=== PATIENT | female | born 1955 | race Caucasian/White ===

== ENCOUNTER 2016-06-26 15:54 | Inpatient (IN) | payer OTHER ==
[~2016-06-26 15:54] MED LIST: methylPREDNISolone NA SUCC 125 MG/2 ML VIAL IVPB SCH
[2016-06-26 15:58] VITALS: BMI 24.9
[2016-06-26] MEDS ORDERED: ACETAMINOPHEN 500 MG TABLET (FP) PO ONE (16:03)
--- NOTE | 2016-06-26 16:03 | PDOC ---
History of Present Illness - General Chief Complaint: Shortness of Breath Stated Complaint: SOB Time Seen by Provider: 06/26/16 16:01 History Source: Patient Exam Limitations: No Limitations - History of Present Illness Initial Comments: 06/26/16 16:03 CHIEF COMPLAINT: Shortness of breath HISTORY OF PRESENT ILLNESS: This is a 60 year old female with a history of HTN, CAD s/p stents in 2004 and 2005, COPD (no home O2, no prior hospitalizations), and chronic back pain s/p laminectomy who presents to the ED complaining of cough productive of yellow sputum and shortness of breath. Symptoms started on Monday with sore throat, and progressed to cough and SOB yesterday. She denies chest pain. Vital signs on arrival are notable for oral temp 101.2 and pulse 126. PCP is Dr. Mccabe. Patient quit smoking 5 months ago. REVIEW OF SYSTEMS: GENERAL/CONSTITUTIONAL: No fever or chills. No weakness. No weight change. HEAD, EYES, EARS, NOSE AND THROAT: Throat pain. CARDIOVASCULAR: No chest pain or palpitations. RESPIRATORY: Cough productive of yellow sputum, wheezing, shortness of breath. GASTROINTESTINAL: No nausea, vomiting, diarrhea or constipation. GENITOURINARY: No dysuria, frequency, or change in urination. MUSCULOSKELETAL: No joint or muscle swelling or pain. No neck or back pain. SKIN: No rash or easy bruising. NEUROLOGIC: No headache, vertigo, loss of consciousness, or loss of sensation. PSYCHIATRIC: No depression or anxiety. ENDOCRINE: No increased thirst. No abnormal weight change. HEMATOLOGIC/LYMPHATIC: No anemia, easy bleeding, or history of blood clots. ALLERGIC/IMMUNOLOGIC: No hives or skin allergy. No latex allergy. PHYSICAL EXAM: GENERAL: The patient is awake, alert, and fully oriented, in respiratory distress, rigoring. ENT: Pupils equal, round and reactive to light, extraocular movements intact, sclera anicteric, conjunctiva clear. Neck supple. LUNGS: Diffuse inspiratory and expiratory wheezing with poor air movement. Speaking in half sentences. CV: Tachycardic, regular rhythm, S1/S2, no MRG. Cap refill < 2 sec. ABDOMEN: Soft, non-distended, non-tender. EXTREMITIES: Normal range of motion, no edema. NEUROLOGICAL: Normal speech, normal gait. CN II-XII grossly intact. PSYCH: Normal mood, normal affect. SKIN: Warm, dry, normal turgor, no rashes or lesions noted. Past History - Past Medical History Allergies/Adverse Reactions: Allergies Allergy/AdvReac Type Severity Reaction Status Date / Time isosorbide mononitrate AdvReac Severe headache Verified 06/26/16 15:58 [From Imdur] metal Allergy Intermediate Rash Uncoded 06/26/16 15:58 Home Medications: Ambulatory Orders Carvedilol [Coreg] 25 mg PO DAILY 08/09/13 Ezetimibe [Zetia] 10 mg PO DAILY 08/09/13 Rosuvastatin Calcium [Crestor] 40 mg PO HS 08/09/13 Ranolazine [Ranexa -] 1,000 mg PO BID 08/26/13 Albuterol 0.083% Nebulizer Alessandra [Ventolin 0.083%] 1 neb NEB QID 08/13/15 Felodipine [Felodipine ER] 5 mg PO DAILY 08/13/15 Mometasone/Formoterol [Dulera 100 Mcg/5 Mcg Inhaler] 2 inh IH BID 08/13/15 Niacin [Niacin ER] 1,000 mg PO DAILY 08/13/15 Olmesartan/Hydrochlorothiazide [Benicar Hct 40-25 mg Tablet] 1 each PO DAILY 03/20 Aspirin [ASA -] 325 mg PO DAILY 02/09/16 Asthma: Yes Cardiac Disorders: Yes (3 stents) Diabetes: No HTN: Yes Hypercholesterolemia: Yes Liver Disease: No Seizures: No - Surgical History Cardiac Surgery: Yes (3 stents) Neurologic Surgery: Yes (spine screws in back) Orthopedic Surgery: Yes (BACK SURGERY) - Psycho/Social/Smoking Cessation Hx Anxiety: No Suicidal Ideation: No Smoking History: Former smoker Have you smoked in the past 12 months: Yes Number of Cigarettes Smoked Daily: 3 If you are a former smoker, when did you quit?: 6 mos ago Information on smoking cessation initiated: No 'Breaking Loose' booklet given: 04/24/15 Hx Alcohol Use: No Drug/Substance Use Hx: No Substance Use Type: Alcohol Hx Substance Use Treatment: No *Physical Exam - Vital Signs Last Vital Signs Temp Pulse Resp BP Pulse Ox 101.2 F H 126 H 20 185/103 95 06/26/16 15:55 06/26/16 15:55 06/26/16 15:55 06/26/16 15:55 06/26/16 15:55 ED Treatment Course - LABORATORY CBC & Chemistry Diagram: 06/26/16 16:15 06/26/16 16:15 - RADIOLOGY Radiology Studies Ordered: Category Date Time Status CHEST PA & LAT [RAD] Stat Radiology 06/26/16 16:02 Ordered Medical Decision Making - Medical Decision Making 06/26/16 17:03 A/P: 60 year old female with COPD exacerbation in the setting of fever and URI symptoms. 1. Supplemental O2 2. EKG 3. Sepsis labs and soto-culture, including rapid strep and influenza swab 4. CXR 5. DuoNeb followed by albuterol nebs 6. Solu-medrol 125mg IVPB 7. Tylenol 975mg po for fever 8. Re-assess Wheezing not improving following DuoNeb x 2 and Solu-Medrol. Will give Mg 2g IVPB. UA with 2+ leukesterase. Culture sent. Ceftriaxone ordered. WBC is within normal limits at 8.1. K 3.2, repleted CXR wet read: no infiltrate; will add Zithromax however with strong suspicion for PNA *DC/Admit/Observation/Transfer Diagnosis at time of Disposition: COPD exacerbation Fever Qualifiers: Fever type: unspecified Qualified Code(s): R50.9 - Fever, unspecified Urinary tract infection Qualifiers: Hematuria presence: without hematuria - Discharge Dispostion Admit: Yes
[2016-06-26] MEDS ORDERED: ACETAMINOPHEN 325 MG TABLET (FP) ONE ×2 (16:08→20:18)
[2016-06-26] MEDS ORDERED: methylPREDNISolone NA SUCC 125 MG/2 ML VIAL IVPB ONE (16:10)
[2016-06-26] MEDS ORDERED: ALBUTEROL SO4 2.5/IPRATROPIUM 0.5 INH SOL 3 ML VIAL.NEB. NEB ONE ×4 (16:10→20:07)
[2016-06-26] MEDS ORDERED: methylPREDNISolone NA SUCC 125 MG/2 ML VIAL ONE (16:14)
[2016-06-26 16:37] LABS: MCH 29.2 pg (25.7-33.7); MCHC 33.4 g/dl (32.0-36.0); MEAN CELL VOLUME 87.4 fl (80-96); MEAN PLT VOLUME 8.9 fl (7.5-11.1); PLATELET COUNT 212 K/MM3 (134-434); RDW 16.4 % (11.6-15.6); WHITE BLOOD COUNT 8.1 K/mm3 (4.0-10.0)
[2016-06-26] MEDS ORDERED: MAGNESIUM SULF 50% (8.12 MEQ/2 ML-1 GM VIAL) IVPB ONE (16:53)
[2016-06-26] MEDS ORDERED: MAGNESIUM SULF 50% (8.12 MEQ/2 ML-1 GM VIAL) ONE (16:55)
[2016-06-26 16:58] LABS: URINE APPEARANCE CLOUDY; URINE COLOR AMBER; URINE GLUCOSE (UA) NEGATIVE (NEGATIVE); URINE KETONE NEGATIVE (NEGATIVE); URINE NITRITE NEGATIVE (NEGATIVE); URINE UROBILINOGEN NEGATIVE E.U./dl (0.2-1.0)
[2016-06-26 17:00] LABS: URINE BLOOD 2+ (NEGATIVE); URINE LEUK ESTERASE 2+ (NEGATIVE); URINE PROTEIN 2+ (NEGATIVE)
[2016-06-26 17:04] LABS: ALBUMIN 3.8 g/dl (3.4-5.0); BILIRUBIN,TOTAL 0.7 mg/dL (0.2-1.0); CALCIUM 8.5 mg/dL (8.5-10.1); CREATININE 1.1 mg/dL (0.55-1.02); TOT PROT 6.9 g/dl (6.4-8.2)
[2016-06-26] MEDS ORDERED: CEFTRIAXONE 1 GM in DEXTROSE 5%-WATER - 50 ML IVPB ONE (17:05)
[2016-06-26 17:06] LABS: URINE MUCUS MANY; URINE RBC 49 /hpf (0-3); URINE WBC 45 /hpf (3-5)
[2016-06-26 17:10] LABS: PLATELET ESTIMATE ADEQUATE (NORMAL)
[2016-06-26] MEDS ORDERED: CEFTRIAXONE 50 ML ONE (17:11)
[2016-06-26] MEDS ORDERED: POTASSIUM CHLORIDE TABS 20 MEQ TABLET.ER (FP) PO ONE ×2 (17:14→17:22)
[2016-06-26] MEDS: ALBUTEROL SO4 0.083% IH SOL 2.5 MG/3 ML VIAL.NEB. NEB SCH ×2 (17:21→17:31)
[2016-06-26] MEDS: SODIUM CHLORIDE 1,000 ML IV SCH (17:21)
[2016-06-26] MEDS ORDERED: ALBUTEROL SO4 0.083% IH SOL 2.5 MG/3 ML VIAL.NEB. NEB ONE (17:22)
[2016-06-26] MEDS ORDERED: AZITHROMYCIN IVPB 500 MG in DEXTROSE 5%-WATER - 250 ML IVPB ONE (17:23)
[2016-06-26] MEDS ORDERED: AZITHROMYCIN IVPB 250 ML IVPB ONE (17:39)
--- NOTE | 2016-06-26 19:06 | PN ---
<Cathie Quintero - Last Filed: 06/26/16 19:06> Teaching Attending Note Name of Resident: Lulu Vaz ATTENDING PHYSICIAN STATEMENT I saw and evaluated the patient. I reviewed the resident's note and discussed the case with the resident. I agree with the resident's findings and plan as documented. SUBJECTIVE: OBJECTIVE: ASSESSMENT AND PLAN: <Barbara Alonso - Last Filed: 06/26/16 20:16> Teaching Attending Note ATTENDING PHYSICIAN STATEMENT I saw and evaluated the patient. I reviewed the resident's note and discussed the case with the resident. I agree with the resident's findings and plan as documented. SUBJECTIVE: 60 yo F with a PMHx of HTN, CAD post stents in 2004 and 2005, COPD, chronic back pain, former smoker quit five months ago presents with chronic productive cough and SOB for 2 days. Patient reports cough began as dry and is now productive with yellow sputum. She also notes associated headache, fever, chills , diaphoresis, decreased appetite and RUQ abdominal pain most likely secondary to coughing. Patient reports she has not had her flu vaccine this year. Denies dysuria Denies: nausea, vomiting, diarrhea Allergies: Isosorbide mononitrate, metal Social Hx: Former Smoker: 1ppd for 20 years OBJECTIVE: Last Vital Signs Temp Pulse Resp BP Pulse Ox 99.1 F 111 H 20 147/90 95 06/26/16 18:11 06/26/16 18:11 06/26/16 18:11 06/26/16 18:11 06/26/16 18:11 GENERAL: Elderly female resting in bed. Able to speak full sentences. Awake, alert, and fully oriented, in no acute distress HEENT: Atraumatic. PERRLA, EOMI. Moist mucosa. No JVD. Throat w/o exudates. LUNGS: No distress, speaks full sentences, course bilateral expiratory wheezing. HEART: Regular rate and rhythm, normal S1 and S2, no murmurs, rubs or gallops, peripheral pulses normal and equal bilaterally. ABDOMEN: Obese, nontender, bowel sounds x4. No guarding, no rebound. No masses EXTREMITIES: Normal inspection, Normal range of motion, no edema. No clubbing or cyanosis. NEUROLOGICAL: Cranial nerves II through XII grossly intact. Normal speech, normal gait, no focal sensorimotor deficits SKIN: Warm, Dry, normal turgor, no rashes or lesions noted. CBCD WBC 8.1 K/mm3 (4.0-10.0) D 06/26/16 16:15 RBC 4.68 M/mm3 (3.60-5.2) D 06/26/16 16:15 Hgb 13.7 GM/dL (10.7-15.3) D 06/26/16 16:15 Hct 40.9 % (32.4-45.2) D 06/26/16 16:15 MCV 87.4 fl (80-96) 06/26/16 16:15 MCHC 33.4 g/dl (32.0-36.0) 06/26/16 16:15 RDW 16.4 % (11.6-15.6) H 06/26/16 16:15 Plt Count 212 K/MM3 (134-434) 06/26/16 16:15 MPV 8.9 fl (7.5-11.1) 06/26/16 16:15 CMP Sodium 140 mmol/L (136-145) 06/26/16 16:15 Potassium 3.3 mmol/L (3.5-5.1) L 06/26/16 16:15 Chloride 104 mmol/L (98-107) 06/26/16 16:15 Carbon Dioxide 25 mmol/L (21-32) 06/26/16 16:15 Anion Gap 11 (8-16) 06/26/16 16:15 BUN 14 mg/dL (7-18) D 06/26/16 16:15 Creatinine 1.1 mg/dL (0.55-1.02) H D 06/26/16 16:15 Creat Clearance w eGFR 50.33 (>60) 06/26/16 16:15 Calcium 8.5 mg/dL (8.5-10.1) 06/26/16 16:15 Total Bilirubin 0.7 mg/dL (0.2-1.0) D 06/26/16 16:15 AST 27 U/L (15-37) D 06/26/16 16:15 ALT 60 U/L (12-78) D 06/26/16 16:15 Alkaline Phosphatase 125 U/L (45-117) H 06/26/16 16:15 Total Protein 6.9 g/dl (6.4-8.2) 06/26/16 16:15 Albumin 3.8 g/dl (3.4-5.0) 06/26/16 16:15 Chest X-Ray Impression: No acute process ASSESSMENT AND PLAN: 60 YO F HTN, CAD post stents, COPD, chronic back pain who presents with SOB admitted for sepsis and COPD exacerbation. 1.) Sepsis -Possibly due to UTI/ questionable PNA -Continue ceftriaxone/ azithromycin -Urine culture -Blood culture -Repeat lactic acid -IV fluids -Flu swab neg. -Check urine AG 2.) Acute exacerbation of COPD -Cont with duonabs ATC/PRN -Continue with solu medrol 60 Q 8 -Fingersticks and sliding scale -Sputum culture -Continue with Dulera -Continue with ceftriaxone 3.) CAD s/p stents -Continue with aspirin coreg -ARB -Continue Ranexa -Continue with statin 4.) HTN -Continue with home meds 5.) LONI questionable CKD -IVF DVT ppx -Heparin 5,000 Q 8 moderate risk Admit to Med-surg Documentation prepared by Barbara Alonso, acting as medical donation professional for Cathie Quintero M.D.
--- NOTE | 2016-06-26 20:09 | HP ---
CHIEF COMPLAINT: SOB and cough PCP: Dr. Vuong. HISTORY OF PRESENT ILLNESS: 60 year old female presented to the ED with the complaints of shortness of breath and cough x 2 days. A/c to the patient, she started having cold like symptoms 2days ago, had sore throat, stuffy nose, dry cough. Her symptoms progressively got worse, started producing yellowish/whitish sputum, no blood noticed. It was associated with Shortness of breath on exertion, aggravated by walking and standing, relieved by sitting on propped up position. Patient mentions she was able to go to work yesterday. But today the symptoms were so severe, she had to come to the ED. Also reports of feeling feverish (temp not recorded ) with chills, sweating but no rigors. Complaints of headache +, frontal, associated with nausea but no vomiting. Hasn't taken flu vaccine Denies dizziness, loc, chest pain, palpitations or abdominal pain. No urinary symptoms, bowel habits normal. Sleep/Appetite decreased. ER course was notable for: (1) CBC, CMP, UA, Urine Culture, Blood culture (2) CXR (3) Ceftriaxone, Azithromycin, Duoneb, Solumedrol, tylenol Recent Travel: None PAST MEDICAL HISTORY: Hypertension, CAD s/p stent 2004/2005, COPD (No home oxygen, no prior hospitalization), chronic back pain s/p laminectomy PAST SURGICAL HISTORY: s/p sent, s/p laminectomy Social History: Smoking: Smoked 1 pack for 20 years, quit 5 months Alcohol: Occasional alcohol intake Drugs: No illicit drug use Family History: Not known Allergies isosorbide mononitrate [From Imdur] Adverse Reaction (Severe, Verified 06/26/16 15:58) headache metal Allergy (Intermediate, Uncoded 06/26/16 15:58) Rash itching HOME MEDICATIONS: Medication Instructions Recorded Carvedilol [Coreg] 25 mg PO DAILY 08/09/13 Ezetimibe [Zetia] 10 mg PO DAILY 08/09/13 Rosuvastatin Calcium [Crestor] 40 mg PO HS 08/09/13 Ranolazine [Ranexa -] 1,000 mg PO BID 08/26/13 Albuterol 0.083% Nebulizer Alessandra 1 neb NEB QID 08/13/15 [Ventolin 0.083%] Felodipine [Felodipine ER] 5 mg PO DAILY 08/13/15 Mometasone/Formoterol [Dulera 100 2 inh IH BID 08/13/15 Mcg/5 Mcg Inhaler] Niacin [Niacin ER] 1,000 mg PO DAILY 08/13/15 Olmesartan/Hydrochlorothiazide 1 each PO DAILY 08/13/15 [Benicar Hct 40-25 mg Tablet] Aspirin [ASA -] 325 mg PO DAILY 02/09/16 REVIEW OF SYSTEMS CONSTITUTIONAL: Present: Fever, chills Absent: diaphoresis, generalized weakness, malaise, loss of appetite, weight change HEENT: Absent: rhinorrhea, nasal congestion, throat pain, throat swelling, difficulty swallowing, mouth swelling, ear pain, eye pain, visual changes CARDIOVASCULAR: Absent: chest pain, syncope, palpitations, irregular heart rate, lightheadedness , peripheral edema RESPIRATORY: Present: cough, shortness of breath, dyspnea with exertion Absent:orthopnea, wheezing, stridor, hemoptysis GASTROINTESTINAL: Absent: abdominal pain, abdominal distension, nausea, vomiting, diarrhea, constipation, melena, hematochezia GENITOURINARY: Absent: dysuria, frequency, urgency, hesitancy, hematuria, flank pain, genital pain MUSCULOSKELETAL: Absent: myalgia, arthralgia, joint swelling, back pain, neck pain SKIN: Absent: rash, itching, pallor HEMATOLOGIC/IMMUNOLOGIC: Absent: easy bleeding, easy bruising, lymphadenopathy, frequent infections ENDOCRINE: Absent: unexplained weight gain, unexplained weight loss, heat intolerance, cold intolerance NEUROLOGIC: Absent: headache, focal weakness or paresthesias, dizziness, unsteady gait, seizure, mental status changes, bladder or bowel incontinence PSYCHIATRIC: Absent: anxiety, depression, suicidal or homicidal ideation, hallucinations. PHYSICAL EXAMINATION Vital Signs - 24 hr 06/26/16 06/26/16 15:55 18:11 Temperature 101.2 F H 99.1 F Pulse Rate 126 H Pulse Rate [ 111 H Left Radial] Respiratory 20 20 Rate Blood Pressure 185/103 Blood Pressure 147/90 [Left Arm] O2 Sat by Pulse 95 95 Oximetry (%) GENERAL: Patient is lying in propped up position, Awake, alert, and fully oriented, SOB with wheezing +. HEAD: Normal with no signs of trauma. EYES: EOM intact, no pallor or icterus. EARS, NOSE, THROAT: Ears normal. Moist mucous membranes. NECK: Supple. LUNGS: B/L Breath sounds equal, wheezing +, coarse breath sounds occasional, no crackles. HEART: Tachycardic, Regular rate and rhythm, normal S1 and S2 without murmur. ABDOMEN: Soft, nontender, not distended, normoactive bowel sounds, no guarding, no rebound, no masses. No hepatomegaly or splenomegaly. MUSCULOSKELETAL: Normal range of motion at all joints. No bony deformities or tenderness. No CVA tenderness. UPPER EXTREMITIES: 2+ pulses, warm, well-perfused. No cyanosis. No clubbing. Cap refill <2 seconds. No peripheral edema. LOWER EXTREMITIES: 2+ pulses, warm, well-perfused. No calf tenderness. No peripheral edema. NEUROLOGICAL: Cranial nerves II-XII intact. Normal speech. Gait not observed. PSYCHIATRIC: Cooperative. Good eye contact. Appropriate mood and affect. SKIN: Warm, dry, normal turgor, no rashes or lesions noted. Laboratory Results - last 24 hr 06/26/16 06/26/16 06/26/16 16:15 16:15 16:15 WBC 8.1 D RBC 4.68 D Hgb 13.7 D Hct 40.9 D MCV 87.4 MCHC 33.4 RDW 16.4 H Plt Count 212 MPV 8.9 Neutrophils % 80.0 D Lymphocytes % 13.0 D Monocytes % 5.0 Band Neutrophils 2.0 Differential Comment Manual diff done Platelet Estimate Adequate Morphology Comment Slide scanned Sodium 140 Potassium 3.3 L Chloride 104 Carbon Dioxide 25 Anion Gap 11 BUN 14 D Creatinine 1.1 H D Creat Clearance w eGFR 50.33 Random Glucose 91 Lactic Acid 1.687 Calcium 8.5 Total Bilirubin 0.7 D AST 27 D ALT 60 D Alkaline Phosphatase 125 H Total Protein 6.9 Albumin 3.8 Urine Color Urine Appearance Urine pH Ur Specific [place] Urine Protein Urine Glucose (UA) Urine Ketones Urine Blood Urine Nitrite Urine Bilirubin Urine Urobilinogen Ur Leukocyte Esterase Urine RBC Urine WBC Ur Epithelial Cells Urine Mucus 06/26/16 16:45 WBC RBC Hgb Hct MCV MCHC RDW Plt Count MPV Neutrophils % Lymphocytes % Monocytes % Band Neutrophils Differential Comment Platelet Estimate Morphology Comment Sodium Potassium Chloride Carbon Dioxide Anion Gap BUN Creatinine Creat Clearance w eGFR Random Glucose Lactic Acid Calcium Total Bilirubin AST ALT Alkaline Phosphatase Total Protein Albumin Urine Color Kathy Urine Appearance Cloudy Urine pH 5.0 Ur Specific [place] 1.029 Urine Protein 2+ H Urine Glucose (UA) Negative Urine Ketones Negative Urine Blood 2+ H Urine Nitrite Negative Urine Bilirubin 4.0 Urine Urobilinogen Negative Ur Leukocyte Esterase 2+ H Urine RBC 49 Urine WBC 45 Ur Epithelial Cells Many Urine Mucus Many ASSESSMENT/PLAN: 60 year old female with significant past medical hx of Hypertension, CAD s/p stent , COPD (No home oxygen, no prior hospitalization), chronic back pain s/p laminectomy presented to the ED with the complaints of shortness of breath and cough x 2 days. # Acute exacerbation of COPD Patient presented with SOB, cough, productive sputum, fever No crackles on auscultation, no leukocytosis, no infiltrates on CXR hence bacterial pneumonia less likely Most likely viral exacerbating COPD In the ED, patient received Ceftriaxone, Azithromycin, Duoneb, Solumedrol, tylenol Ceftriaxone/ Azithromycin will cover questionable pneumonia Monitor vitals Duoneb Q6H Saturation to be maintained between 88-92% Nasal Oxygen PRN Blood culture pending Urine for Legionella Ag pending Influenza negative On Insulin sliding scale, finger stick glucose-since patient is on solumedrol , steroids might raise blood sugar. # Sepsis secondary to most likely Urinary tract infection UA Leukocyte esterase ++, RBC 49, WBC 45 Continue Ceftriaxone IV NS @ 100mls Plenty of oral fluids Urine culture pending. # Progressing towards LONI. Creatinine 1.1, baseline creatinine 0.8 in 2010 IV fluids continued Avoid nephrotoxic drugs # Hypokalemia K-3.3, repleted in the ED CMP, Magnesium to be repeated tomorrow. # CAD s/p stents, Hypertension, Hyperlipidemia Continue home meds: Aspirin, Olmesartan/HCTZ, Carvedilol 25mg Daily, Rosuvastatin 40mg HS, Felodipine, Ranolazine, Ezetimibe # FEN IV NS @ 100mls/hr Electrolytes to be repeated tomorrow. Sodium controlled diet # Prophylaxis For DVT- Heparin sq For GI- Not indicated # Dispo: Admitted in Med-surg, do not know the duration of stay at this time Illness, Investigation and plan of care explained to the patient. She verbalized understanding. Case seen and discussed with Dr. Quintero. Visit type - Emergency Visit Emergency Visit: Yes ED Registration Date: 06/26/16 Care time: The patient presented to the Emergency Department on the above date and was hospitalized for further evaluation of their emergent condition. - New Patient This patient is new to me today: Yes Date on this admission: 06/27/16 - Critical Care Critical Care patient: No
[2016-06-26] MEDS: ALBUTEROL SO4 2.5/IPRATROPIUM 0.5 INH SOL 3 ML VIAL.NEB. NEB SCH (20:10)
[2016-06-26] MEDS ORDERED: ACETAMINOPHEN 325 MG TABLET (FP) PO ONE (20:14)
[2016-06-26] MEDS ORDERED: ALBUTEROL SO4 2.5/IPRATROPIUM 0.5 INH SOL 3 ML VIAL.NEB. NEB PRN (21:33)
[2016-06-27] MEDS ORDERED: HEPARIN NA (PORCINE) 5,000 UNITS/ML 1ML VIAL ONE (02:07)
[2016-06-27] MEDS ORDERED: INSULIN (NOVOLOG) ASPART 100 UNITS/ML 10ML VIAL ONE (02:08)
[2016-06-27] MEDS: ALBUTEROL SO4 2.5/IPRATROPIUM 0.5 INH SOL 3 ML VIAL.NEB. NEB SCH ×3 (02:20→15:15)
[2016-06-27] MEDS: HEPARIN NA (PORCINE) 5,000 UNITS/ML 1ML VIAL SQ SCH ×3 (02:20→23:00)
[2016-06-27] MEDS: ROSUVASTATIN CA 20 MG TABLET (FP) PO SCH ×2 (02:20→22:59)
[2016-06-27] MEDS: RANOLAZINE E.R. 1,000 MG TABLET (FP) PO SCH ×3 (02:21→23:00)
[2016-06-27] MEDS: INSULIN SLIDING SCALE (NOVOLOG) 1 VIAL SQ SCH ×5 (02:21→23:35)
[2016-06-27 07:18] LABS: BASOPHIL 0.3 % (0-2.0); MCH 29.8 pg (25.7-33.7); MCHC 34.1 g/dl (32.0-36.0); MEAN CELL VOLUME 87.4 fl (80-96); NEUTROPHILS 85.9 % (42.8-82.8); PLATELET COUNT 223 K/MM3 (134-434); RDW 16.1 % (11.6-15.6); WHITE BLOOD COUNT 6.8 K/mm3 (4.0-10.0)
[2016-06-27 08:15] LABS: ALBUMIN 3.3 g/dl (3.4-5.0); ALK PHOS 101 U/L (45-117); ANION GAP 10 (8-16); BILIRUBIN,TOTAL 0.3 mg/dL (0.2-1.0); CO2 24 mmol/L (21-32); CREATININE 0.9 mg/dL (0.55-1.02); GLUCOSE,RANDOM 135 mg/dL (74-106); MAGNESIUM 2.7 mg/dL (1.8-2.4); PHOSPHOROUS 3.4 mg/dL (2.5-4.9); SGOT/AST 17 U/L (15-37); SGPT/ALT 44 U/L (12-78); TOT PROT 6.1 g/dl (6.4-8.2)
[2016-06-27] MEDS: SODIUM CHLORIDE 1,000 ML IV SCH ×2 (08:39→17:49)
[2016-06-27] MEDS ORDERED: NIACIN 1000 MG PO SCH (10:00)
[2016-06-27] MEDS ORDERED: PATIENT'S OWN MEDICATION (NON-FORMULARY) (Olmesartan/Hydrochlorothiazide [Benicar Hct 40-2 PO SCH (10:00)
[2016-06-27] MEDS ORDERED: methylPREDNISolone NA SUCC 125 MG/2 ML VIAL IVPB SCH (10:00)
[2016-06-27] MEDS ORDERED: CEFTRIAXONE 50 ML ONE (10:16)
[2016-06-27] MEDS: ASPIRIN 325 MG TABLET PO SCH (10:31)
[2016-06-27] MEDS: CARVEDILOL 25 MG TABLET (FP) PO SCH (10:31)
[2016-06-27] MEDS: CEFTRIAXONE 50 ML IVPB SCH (10:32)
[2016-06-27] MEDS: EZETIMIBE 10 MG TABLET (FP) PO SCH (10:32)
[2016-06-27] MEDS: HYDROCHLOROTHIAZIDE 25 MG TABLET (FP) PO SCH (10:32)
[2016-06-27] MEDS: amLODIPine BESYLATE 5 MG TABLET (FP) PO SCH (10:32)
[2016-06-27] MEDS: VALSARTAN 160 MG TABLET (UD) PO SCH (10:34)
[2016-06-27] MEDS: methylPREDNISolone NA SUCC 125 MG/2 ML VIAL IVPB SCH ×2 (11:00→17:49)
--- NOTE | 2016-06-27 11:06 | EKG ---
Test Reason : Blood Pressure : / mmHG Vent. Rate : 114 BPM Atrial Rate : 114 BPM P-R Int : 114 ms QRS Dur : 074 ms QT Int : 342 ms P-R-T Axes : 050 057 043 degrees QTc Int : 471 ms SINUS TACHYCARDIA POSSIBLE LEFT ATRIAL ENLARGEMENT NONSPECIFIC ST ABNORMALITY ABNORMAL ECG WHEN COMPARED WITH ECG OF 09-FEB-2016 15:38, NO SIGNIFICANT CHANGE WAS FOUND Confirmed by JNAICE HAYES MD ([id number]) on 06/27/2016 11:06:19 AM Referred By: Confirmed By:JANICE HAYES MD
[2016-06-27] MEDS ORDERED: IBUPROFEN 800 MG/8 ML IJ IVPB PRN (13:33)
[2016-06-27] MEDS ORDERED: ALBUTEROL SO4 2.5/IPRATROPIUM 0.5 INH SOL 3 ML VIAL.NEB. NEB PRN (13:34)
[2016-06-27] MEDS ORDERED: methylPREDNISolone NA SUCC 125 MG/2 ML VIAL ONE (14:58)
[2016-06-27] MEDS ORDERED: IBUPROFEN 800 MG/8 ML IJ IVPB ONE (15:08)
[2016-06-27] MEDS ORDERED: ALBUTEROL SO4 2.5/IPRATROPIUM 0.5 INH SOL 3 ML VIAL.NEB. NEB ONE (15:09)
--- NOTE | 2016-06-27 15:19 | PN ---
Progress Note (short form) - Note Progress Note: ID consult dictated fever/cough bronchospasm possible pneumonia possible viral syndrome continue rocephin/zith steroids nebs influenza negative would screen for rsv as well history of cad check BNP and troponins as well possible chf
[2016-06-27] MEDS ORDERED: methylPREDNISolone NA SUCC 40 MG/1 ML VIAL IVPB ONE (15:20)
--- NOTE | 2016-06-27 15:24 | CONSULT ---
Consult Consult Specialty:: PULM/CCM Referred by:: CINDY Reason for Consultation:: SOB - History of Present Illness Chief Complaint: SOB and fever History of Present Illness: 60 F, with listed medical history. Former smoker for the past 6 months. History of COPD maintained on Dulera and Albuterol. Admitted for 2 days of congested cough and SOB. Subjective fever. No travel history or sick contacts. No night sweats or hemoptysis. CXR: no gross infiltrate. - History Source History Provided By: Patient Limitations to Obtaining History: No Limitations - Past Medical History Cardio/Vascular: Yes: CAD, HTN, Hyperlipdemia Pulmonary: Yes: Asthma - Past Surgical History Past Surgical History: Yes: Stent - Alcohol/Substance Use Hx Alcohol Use: No - Smoking History Smoking history: Former smoker Have you smoked in the past 12 months: Yes Aproximately how many cigarettes per day: 3 If you are a former smoker, when did you quit?: 6 mos ago Home Medications - Allergies Allergies/Adverse Reactions: Allergies Allergy/AdvReac Type Severity Reaction Status Date / Time isosorbide mononitrate AdvReac Severe headache Verified 06/26/16 15:58 [From Imdur] metal Allergy Intermediate Rash Uncoded 06/26/16 15:58 - Home Medications Home Medications: Ambulatory Orders Carvedilol [Coreg] 25 mg PO DAILY 08/09/13 Ezetimibe [Zetia] 10 mg PO DAILY 08/09/13 Rosuvastatin Calcium [Crestor] 40 mg PO HS 08/09/13 Ranolazine [Ranexa -] 1,000 mg PO BID 08/26/13 Albuterol 0.083% Nebulizer Alessandra [Ventolin 0.083%] 1 neb NEB QID 08/13/15 Felodipine [Felodipine ER] 10 mg PO DAILY 08/13/15 Mometasone/Formoterol [Dulera 100 Mcg/5 Mcg Inhaler] 2 inh IH BID 08/13/15 Niacin [Niacin ER] 1,000 mg PO DAILY 08/13/15 Olmesartan/Hydrochlorothiazide [Benicar Hct 40-25 mg Tablet] 1 each PO DAILY 03/20 Aspirin [ASA -] 325 mg PO DAILY 02/09/16 Albuterol Sulfate Inhaler - [Ventolin Hfa Inhaler -] 1 - 2 inh PO Q4H PRN Mometasone/Formoterol [Dulera 200 Mcg/5 Mcg Inhaler] 2 inh IH BID 06/27/16 Review of Systems - Review of Systems Constitutional: reports: Fever, Malaise. denies: Chills, Night Sweats, Weakness Eyes: reports: No Symptoms HENT: reports: No Symptoms Neck: reports: No Symptoms Cardiovascular: reports: Shortness of Breath. denies: Chest Pain, Edema, Palpitations Respiratory: reports: Cough, SOB, SOB on Exertion, Wheezing. denies: Hemoptysis Gastrointestinal: reports: No Symptoms Genitourinary: reports: No Symptoms Breasts: reports: No Symptoms Reported Musculoskeletal: reports: No Symptoms Integumentary: reports: No Symptoms Neurological: reports: No Symptoms Endocrine: reports: No Symptoms Hematology/Lymphatic: reports: No Symptoms Psychiatric: reports: No Symptoms Physical Exam Vital Signs: Vital Signs Temperature 98 F 06/27/16 08:41 Pulse Rate 73 06/27/16 12:17 Respiratory Rate 18 06/27/16 12:17 Blood Pressure 126/74 06/27/16 12:17 O2 Sat by Pulse Oximetry (%) 95 06/27/16 12:17 Constitutional: Yes: Well Nourished, No Distress. No: Pallor Eyes: Yes: Conjunctiva Clear, EOM Intact HENT: Yes: Atraumatic, Normocephalic Neck: Yes: Supple, Trachea Midline Cardiovascular: Yes: Regular Rate and Rhythm Respiratory: Yes: Cough, On Nasal O2, Rhonchi, SOB, Tachypnea, Wheezes. No: Accessory Muscle Use, Stridor Gastrointestinal: Yes: Normal Bowel Sounds, Soft, Abdomen, Obese Renal/: Yes: WNL Musculoskeletal: Yes: WNL Extremities: Yes: WNL Edema: No Peripheral Pulses WNL: Yes Integumentary: Yes: WNL Wound/Incision: Yes: Clean/Dry, Well Approximated Neurological: Yes: Alert, Oriented ...Motor Strength: WNL Psychiatric: Yes: WNL, Alert, Oriented Labs: CBC, BMP 06/27/16 06:30 06/27/16 06:30 Imaging - Results Chest X-ray: Report Reviewed, Image Reviewed Problem List - Problems (1) COPD exacerbation Code(s): J44.1 - CHRONIC OBSTRUCTIVE PULMONARY DISEASE W (ACUTE) EXACERBATION (2) Fever Code(s): R50.9 - FEVER, UNSPECIFIED Qualifiers: Fever type: unspecified Qualified Code(s): R50.9 - Fever, unspecified (3) Shortness of breath Code(s): R06.02 - SHORTNESS OF BREATH (4) COPD (chronic obstructive pulmonary disease) Code(s): J44.9 - CHRONIC OBSTRUCTIVE PULMONARY DISEASE, UNSPECIFIED Qualifiers : Emphysema type: unspecified (5) Hyperlipidemia Code(s): E78.5 - HYPERLIPIDEMIA, UNSPECIFIED Qualifiers: Hyperlipidemia type: mixed hyperlipidemia Qualified Code(s): E78.2 - Mixed hyperlipidemia (6) Hypertension Code(s): I10 - ESSENTIAL (PRIMARY) HYPERTENSION Qualifiers: Hypertension type: essential hypertension Qualified Code(s): I10 - Essential (primary) hypertension (7) S/P drug eluting coronary stent placement Code(s): Z95.5 - PRESENCE OF CORONARY ANGIOPLASTY IMPLANT AND GRAFT Assessment/Plan PLAN: Medrol O2 as needed BD TX ABX Per ID Agree with checking cardiac markers Check sputum Continued smoking cessation PFTs after she is stable as an outpatient Will follow Thank you. Dr Frances
--- NOTE | 2016-06-27 16:13 | PN ---
Teaching Attending Note Name of Resident: Domonique Alexander ATTENDING PHYSICIAN STATEMENT I saw and evaluated the patient. I reviewed the resident's note and discussed the case with the resident. I agree with the resident's findings and plan as documented. SUBJECTIVE: Patient is c/o having headache, no shortness of breath, no nausea or vomiting, no abdominal pain. OBJECTIVE: Vital Signs Temperature 98 F 06/27/16 08:41 Pulse Rate 86 06/27/16 15:43 Respiratory Rate 20 06/27/16 15:43 Blood Pressure 137/79 06/27/16 15:43 O2 Sat by Pulse Oximetry (%) 96 06/27/16 15:43 GENERAL: The patient is awake, alert, and fully oriented, in no distress. HEAD: Normal with no signs of trauma. EYES: PERRL, extraocular movements intact, sclera anicteric, conjunctiva clear. No ptosis. ENT: Ears normal, oropharynx clear without exudates, moist mucous membranes. NECK: Trachea midline, full range of motion, supple. LUNGS: Breath sounds equal, wheezing and rales bilaterally, no crackles, no accessory muscle use. HEART: Regular rate and rhythm, S1, S2 without murmur, rub or gallop. ABDOMEN: Soft, nontender, nondistended, normoactive bowel sounds, no guarding, no rebound, no hepatosplenomegaly, no masses. EXTREMITIES: 2+ pulses, warm, well-perfused, no edema. NEUROLOGICAL: Cranial nerves II through XII grossly intact. Normal speech, PSYCH: Normal mood, normal affect. SKIN: Warm, dry, normal turgor, no rashes or lesions noted CBCD WBC 6.8 K/mm3 (4.0-10.0) 06/27/16 06:30 RBC 4.21 M/mm3 (3.60-5.2) 06/27/16 06:30 Hgb 12.5 GM/dL (10.7-15.3) 06/27/16 06:30 Hct 36.8 % (32.4-45.2) 06/27/16 06:30 MCV 87.4 fl (80-96) 06/27/16 06:30 MCHC 34.1 g/dl (32.0-36.0) 06/27/16 06:30 RDW 16.1 % (11.6-15.6) H 06/27/16 06:30 Plt Count 223 K/MM3 (134-434) 06/27/16 06:30 MPV 9.0 fl (7.5-11.1) 06/27/16 06:30 CMP Sodium 142 mmol/L (136-145) 06/27/16 06:30 Potassium 4.1 mmol/L (3.5-5.1) D 06/27/16 06:30 Chloride 108 mmol/L (98-107) H 06/27/16 06:30 Carbon Dioxide 24 mmol/L (21-32) 06/27/16 06:30 Anion Gap 10 (8-16) 06/27/16 06:30 BUN 21 mg/dL (7-18) H D 06/27/16 06:30 Creatinine 0.9 mg/dL (0.55-1.02) 06/27/16 06:30 Creat Clearance w eGFR > 60 (>60) 06/27/16 06:30 Random Glucose 135 mg/dL (74-106) H D 06/27/16 06:30 Calcium 9.0 mg/dL (8.5-10.1) 06/27/16 06:30 Total Bilirubin 0.3 mg/dL (0.2-1.0) D 06/27/16 06:30 AST 17 U/L (15-37) D 06/27/16 06:30 ALT 44 U/L (12-78) D 06/27/16 06:30 Alkaline Phosphatase 101 U/L (45-117) 06/27/16 06:30 Total Protein 6.1 g/dl (6.4-8.2) L 06/27/16 06:30 Albumin 3.3 g/dl (3.4-5.0) L 06/27/16 06:30 Current Medications Generic Name Dose Route Start Last Admin Trade Name Freq PRN Reason Stop Dose Admin Albuterol Sulfate 1 amp 06/27/16 15:30 Ventolin 0.083% Nebulizer Soln - NEB TIDR FABIO Albuterol/Ipratropium 1 amp 06/27/16 13:34 Duoneb - NEB Q4H PRN SHORTNESS OF BREATH Amlodipine Besylate 5 mg 06/27/16 10:00 06/27/16 10:32 Norvasc - PO 5 mg DAILY FABIO Administration Aspirin 325 mg 06/27/16 10:00 06/27/16 10:31 Asa - PO 325 mg DAILY FABIO Administration Carvedilol 25 mg 06/27/16 10:00 06/27/16 10:31 Coreg - PO 25 mg DAILY FABIO Administration Ezetimibe 10 mg 06/27/16 10:00 06/27/16 10:32 Zetia - PO 10 mg DAILY FABIO Administration Heparin Sodium (Porcine) 5,000 unit 06/26/16 22:00 06/27/16 10:31 Heparin - SQ 5,000 unit BID FABIO Administration Hydrochlorothiazide 25 mg 06/27/16 10:00 06/27/16 10:32 Hctz - PO 25 mg DAILY FABIO Administration Sodium Chloride 1,000 mls @ 100 mls/hr 06/26/16 17:15 06/27/16 08:39 Normal Saline - IV 100 mls/hr ASDIR FABOI Administration Azithromycin 250 mls @ 250 mls/hr 06/27/16 20:03 Zithromax 500mg Ivpb (Pre-Docked) IVPB DAILY FABIO Ceftriaxone Sodium 50 mls @ 100 mls/hr 06/27/16 10:00 06/27/16 10:32 Rocephin 1gm Ivpb (Pre-Docked) IVPB 100 mls/hr DAILY FABIO Administration Ibuprofen 400 mg 06/27/16 13:33 06/27/16 15:15 Caldolor Injection - IVPB 06/28/16 08:00 400 mg Q6H PRN Administration FEVER Influenza Virus Vaccine 45 mcg 06/27/16 12:21 Fluvirin IM 06/27/16 12:22 .ONCE ONE Insulin Aspart 1 vial 06/26/16 22:00 06/27/16 11:22 Novolog Vial Sliding Scale - SQ Not Given ACHS [facility] Protocol Methylprednisolone Sodium Succinate 60 mg 06/27/16 10:00 06/27/16 11:00 Solu-Medrol - IVPB 60 mg Q8H-IV FABIO Administration Non-Formulary Medication 2 inh 06/27/16 22:00 Mometasone/Formoterol [Dulera 100 Mcg/5 Mcg Inhaler] IH BID FABIO Non-Formulary Medication 1,000 mg 06/27/16 10:00 Niacin [Niacin Er] PO DAILY FABIO Ranolazine 1,000 mg 06/26/16 22:00 06/27/16 10:31 Ranexa - PO 1,000 mg BID FABIO Administration Rosuvastatin Calcium 40 mg 06/26/16 22:00 06/27/16 02:20 Crestor - PO 40 mg HS FABIO Administration Valsartan 320 mg 06/27/16 10:00 06/27/16 10:34 Diovan - PO 320 mg DAILY FABIO Administration Current Medications Generic Name Dose Route Start Last Admin Trade Name Freq PRN Reason Stop Dose Admin Albuterol Sulfate 1 amp 06/27/16 15:30 Ventolin 0.083% Nebulizer Soln - NEB TIDR FABIO Albuterol/Ipratropium 1 amp 06/27/16 13:34 Duoneb - NEB Q4H PRN SHORTNESS OF BREATH Amlodipine Besylate 5 mg 06/27/16 10:00 06/27/16 10:32 Norvasc - PO 5 mg DAILY FABIO Administration Aspirin 325 mg 06/27/16 10:00 06/27/16 10:31 Asa - PO 325 mg DAILY FABIO Administration Carvedilol 25 mg 06/27/16 10:00 06/27/16 10:31 Coreg - PO 25 mg DAILY FABIO Administration Ezetimibe 10 mg 06/27/16 10:00 06/27/16 10:32 Zetia - PO 10 mg DAILY FABIO Administration Heparin Sodium (Porcine) 5,000 unit 06/26/16 22:00 06/27/16 10:31 Heparin - SQ 5,000 unit BID FABIO Administration Hydrochlorothiazide 25 mg 06/27/16 10:00 06/27/16 10:32 Hctz - PO 25 mg DAILY FABIO Administration Sodium Chloride 1,000 mls @ 100 mls/hr 06/26/16 17:15 06/27/16 08:39 Normal Saline - IV 100 mls/hr ASDIR FABIO Administration Azithromycin 250 mls @ 250 mls/hr 06/27/16 20:03 Zithromax 500mg Ivpb (Pre-Docked) IVPB DAILY FABIO Ceftriaxone Sodium 50 mls @ 100 mls/hr 06/27/16 10:00 06/27/16 10:32 Rocephin 1gm Ivpb (Pre-Docked) IVPB 100 mls/hr DAILY FABIO Administration Ibuprofen 400 mg 06/27/16 13:33 06/27/16 15:15 Caldolor Injection - IVPB 06/28/16 08:00 400 mg Q6H PRN Administration FEVER Influenza Virus Vaccine 45 mcg 06/27/16 12:21 Fluvirin IM 06/27/16 12:22 .ONCE ONE Insulin Aspart 1 vial 06/26/16 22:00 06/27/16 11:22 Novolog Vial Sliding Scale - SQ Not Given ACHS FABIO Protocol Methylprednisolone Sodium Succinate 60 mg 06/27/16 10:00 06/27/16 11:00 Solu-Medrol - IVPB 60 mg Q8H-IV FABIO Administration Non-Formulary Medication 2 inh 06/27/16 22:00 Mometasone/Formoterol [Dulera 100 Mcg/5 Mcg Inhaler] IH BID FABIO Non-Formulary Medication 1,000 mg 06/27/16 10:00 Niacin [Niacin Er] PO DAILY FABIO Ranolazine 1,000 mg 06/26/16 22:00 06/27/16 10:31 Ranexa - PO 1,000 mg BID FABIO Administration Rosuvastatin Calcium 40 mg 06/26/16 22:00 06/27/16 02:20 Crestor - PO 40 mg HS FABIO Administration Valsartan 320 mg 06/27/16 10:00 06/27/16 10:34 Diovan - PO 320 mg DAILY FABIO Administration ASSESSMENT AND PLAN: 60 year old female with significant past medical hx of Hypertension, CAD s/p stent , COPD (No home oxygen, no prior hospitalization), chronic back pain s/p laminectomy presented to the ED with the complaints of shortness of breath and cough x 2 days. She is admitted for COPD exacerbation. #Acute exacerbation of COPD # Sepsis secondary to most likely Urinary tract infection #LONI. improving, avoid nephrotoxic drugs # Hypokalemia and Hypomagnesemia; repleted #CAD s/p stents, Hypertension, Hyperlipidemia #Headache;ordered Ibuprofen 400 mg IV Prophylaxis DVT- Heparin sq
--- NOTE | 2016-06-27 17:24 | PN ---
Physical Exam: SUBJECTIVE: Patient seen and examined. She is complaining of a headache, SOB, cough and wheezing. She denies chest pain, abdominal pain, palpitations, N/V, diarrhea. OBJECTIVE: Vital Signs Period Temp Pulse Resp BP Sys/Gonzalez Pulse Ox Last 24 Hr 98 F-99.1 F 73-111 16-20 126-153/74-92 94-98 GENERAL: The patient is awake, alert, and fully oriented, in no acute distress. HEAD: Normal with no signs of trauma. EYES: PERRL, extraocular movements intact, sclera anicteric, conjunctiva clear. No ptosis. ENT: Ears normal, nares patent, oropharynx clear without exudates, moist mucous membranes. NECK: Trachea midline, full range of motion, supple. LUNGS: Breath sounds equal, diminished B/L, rales and wheezing bilaterally, no wheezes, no crackles, no accessory muscle use. HEART: Regular rate and rhythm, S1, S2 without murmur, rub or gallop. ABDOMEN: Obese, soft, nontender, nondistended, normoactive bowel sounds, no guarding, no rebound, no hepatosplenomegaly, no masses. EXTREMITIES: 2+ pulses, warm, well-perfused, no edema. NEUROLOGICAL: Cranial nerves II through XII grossly intact. Normal speech, gait not observed. PSYCH: Normal mood, normal affect. SKIN: Warm, dry, normal turgor, no rashes or lesions noted Laboratory Results - last 24 hr 06/27/16 06/27/16 06/27/16 00:33 06:30 06:30 WBC 6.8 RBC 4.21 Hgb 12.5 Hct 36.8 MCV 87.4 MCHC 34.1 RDW 16.1 H Plt Count 223 MPV 9.0 Neutrophils % 85.9 H Lymphocytes % 9.9 D Monocytes % 3.9 Eosinophils % 0.0 D Basophils % 0.3 Sodium 142 Potassium 4.1 D Chloride 108 H Carbon Dioxide 24 Anion Gap 10 BUN 21 H D Creatinine 0.9 Creat Clearance w eGFR > 60 POC Glucometer [phone] Random Glucose 135 H D Calcium 9.0 Phosphorus 3.4 Magnesium 2.7 H D Total Bilirubin 0.3 D AST 17 D ALT 44 D Alkaline Phosphatase 101 Total Protein 6.1 L Albumin 3.3 L 06/27/16 06/27/16 06/27/16 06:39 11:15 16:53 WBC RBC Hgb Hct MCV MCHC RDW Plt Count MPV Neutrophils % Lymphocytes % Monocytes % Eosinophils % Basophils % Sodium Potassium Chloride Carbon Dioxide Anion Gap BUN Creatinine Creat Clearance w eGFR POC Glucometer 134.41486 105.82405 160 Random Glucose Calcium Phosphorus Magnesium Total Bilirubin AST ALT Alkaline Phosphatase Total Protein Albumin Active Medications Generic Name Dose Route Start Last Admin Trade Name Freq PRN Reason Stop Dose Admin Albuterol Sulfate 1 amp 06/27/16 15:30 Ventolin 0.083% Nebulizer Soln - NEB TIDR STANISLAW Albuterol/Ipratropium 1 amp 06/27/16 13:34 Duoneb - NEB Q4H PRN SHORTNESS OF BREATH Amlodipine Besylate 5 mg 06/27/16 10:00 06/27/16 10:32 Norvasc - PO 5 mg DAILY STANISLAW Administration Aspirin 325 mg 06/27/16 10:00 06/27/16 10:31 Asa - PO 325 mg DAILY ST[facility]ISLAW Administration Carvedilol 25 mg 06/27/16 10:00 06/27/16 10:31 Coreg - PO 25 mg DAILY ST[facility]LAW Administration Ezetimibe 10 mg 06/27/16 10:00 06/27/16 10:32 Zetia - PO 10 mg DAILY ST[facility]LA[facility] Administration Heparin Sodium (Porcine) 5,000 unit 06/26/16 22:00 06/27/16 10:31 Heparin - SQ 5,000 unit BID STANISLAW Administration Hydrochlorothiazide 25 mg 06/27/16 10:00 06/27/16 10:32 Hctz - PO 25 mg DAILY STANISLAW Administration Sodium Chloride 1,000 mls @ 100 mls/hr 06/26/16 17:15 06/27/16 08:39 Normal Saline - IV 100 mls/hr ASDIR STANISLAW Administration Azithromycin 250 mls @ 250 mls/hr 06/27/16 20:03 Zithromax 500mg Ivpb (Pre-Docked) IVPB DAILY STANISLAW Ceftriaxone Sodium 50 mls @ 100 mls/hr 06/27/16 10:00 06/27/16 10:32 Rocephin 1gm Ivpb (Pre-Docked) IVPB 100 mls/hr DAILY [facility]ISLAW Administration Ibuprofen 400 mg 06/27/16 13:33 06/27/16 15:15 Caldolor Injection - IVPB 06/28/16 08:00 400 mg Q6H PRN Administration FEVER Influenza Virus Vaccine 45 mcg 06/27/16 12:21 Fluvirin IM 06/27/16 12:22 .ONCE ONE Insulin Aspart 1 vial 06/26/16 22:00 06/27/16 16:53 Novolog Vial Sliding Scale - SQ 2 unit ACHS STANISLAW Administration Protocol Methylprednisolone Sodium Succinate 60 mg 06/27/16 10:00 06/27/16 11:00 Solu-Medrol - IVPB 60 mg Q8H-IV STANISLAW Administration Non-Formulary Medication 2 inh 06/27/16 22:00 Mometasone/Formoterol [Dulera 100 Mcg/5 Mcg Inhaler] IH BID STANISLAW Non-Formulary Medication 1,000 mg 06/27/16 10:00 Niacin [Niacin Er] PO DAILY STANISLAW Ranolazine 1,000 mg 06/26/16 22:00 06/27/16 10:31 Ranexa - PO 1,000 mg BID ST[facility]LAW Administration Rosuvastatin Calcium 40 mg 06/26/16 22:00 06/27/16 02:20 Crestor - PO 40 mg HS ST[facility]ISLAW Administration Valsartan 320 mg 06/27/16 10:00 06/27/16 10:34 Diovan - PO 320 mg DAILY ST[facility]ISLAW Administration ASSESSMENT/PLAN: 60 year old female with significant past medical hx of Hypertension, CAD s/p stent 2004/2005, COPD (No home oxygen, no prior hospitalization), chronic back pain s/p laminectomy presented to the ED with the complaints of shortness of breath and cough x 2 days. She is admitted for COPD exacerbation. Acute exacerbation of COPD -In the ED, patient received Ceftriaxone, Azithromycin, Duoneb, Solumedrol, tylenol -Ceftriaxone/ Azithromycin will cover questionable pneumonia -ID consulted will continue abx - Duoneb Q6H Stanislaw an dQ4H PRN -Saturation to be maintained between 88-92% -Nasal Oxygen PRN -Blood culture pending -Urine for Legionella Ag pending -Influenza negative -added one dose of Solu medrol -on Solu-medrol 60 mg Q8H STANISLAW Sepsis secondary to most likely Urinary tract infection -UA Leukocyte esterase ++, RBC 49, WBC 45 -Continue Ceftriaxone -IV NS @ 100mls -Plenty of oral fluids -Urine culture pending Progressing towards LONI. -Creatinine 0.9 today,improved -IV fluids continued -Avoid nephrotoxic drugs Hypokalemia and Hypomagnesemia; -K-3.3, repleted in the ED -CMP, Mg 2.7 today CAD s/p stents, Hypertension, Hyperlipidemia -Continue home meds: Aspirin, Olmesartan/HCTZ, Carvedilol 25mg Daily, Rosuvastatin 40mg HS, Felodipine, Ranolazine, Ezetimibe -ordered BNP and troponins to r/o CHF Headache; -ordered Ibuprofen 400 mg IV FEN -IV NS @ 100mls/hr -No changes today -Sodium controlled diet Prophylaxis For DVT- Heparin sq For GI- Not indicated Dispo: Admitted in Med-surg Problem List - Problems (1) COPD exacerbation Code(s): J44.1 - CHRONIC OBSTRUCTIVE PULMONARY DISEASE W (ACUTE) EXACERBATION (2) Fever Code(s): R50.9 - FEVER, UNSPECIFIED Qualifiers: Fever type: unspecified Qualified Code(s): R50.9 - Fever, unspecified (3) Urinary tract infection Code(s): N39.0 - URINARY TRACT INFECTION, SITE NOT SPECIFIED Qualifiers: Hematuria presence: without hematuria (4) Shortness of breath Code(s): R06.02 - SHORTNESS OF BREATH Visit type - Emergency Visit Emergency Visit: Yes ED Registration Date: 06/26/16 Care time: The patient presented to the Emergency Department on the above date and was hospitalized for further evaluation of their emergent condition. - New Patient This patient is new to me today: No - Critical Care Critical Care patient: No - Discharge Referral Referred to [facility] No
[2016-06-27 17:47] LABS: TROPONIN I < 0.02 ng/ml (0.00-0.05)
[2016-06-27] MEDS: ALBUTEROL SO4 0.083% IH SOL 2.5 MG/3 ML VIAL.NEB. NEB SCH ×3 (18:55→21:15)
[2016-06-27] MEDS ORDERED: INFLUENZA VACCINE 45 MCG/0.5 ML (MDV 16-17) IM ONE (19:30)
[2016-06-27] MEDS: AZITHROMYCIN IVPB 250 ML IVPB SCH (20:46)
--- NOTE | 2016-06-27 20:55 | CONS ---
DATE OF CONSULTATION: DATE OF DICTATION: 06/27/2016 REQUESTED BY: Hospitalist Service This is a 60-year-old woman with a history of hypertension, coronary artery disease. She has a history of 3 cardiac stents in the past. She has a history of hypertension. She presents to the emergency room with progressive shortness of breath. She reports attending a meeting at work on Monday. On she noted a sore throat. On Monday she had some chest congestion. It felt like everything was stuck in her chest and she could not cough it out. She started taking Mucinex at home. On Monday she went to work. She works as a banking assistant. She returned from work and had progressive shortness of breath, she felt like she could not breathe. Again she had this chest congestion. There was no associated chest pain. She had no nausea, vomiting or diarrhea. This progressed all through the next day and she came to the emergency room. She denies any hemoptysis. She is really not able to expectorate anything. She has no history of asthma. She has a history of prior COPD. She was seen a week ago by Dr. Mccabe in his office for some shoulder discomfort. Her temperature when she arrived yesterday to the emergency room was 101.2 with a pulse of 126. Her past medical history, as stated before, is notable for coronary artery disease. To me, she denies asthma. She has a history of hypertension, hypercholesterolemia. She has [address] and she has had both a cervical and a lumbar laminectomy in the past. She is allergic to METAL and to IMDUR. Her medications at home include Coreg, Zetia, Crestor, Ranexa, Ventolin, felodipine, Dulera, niacin, Benicar, and aspirin. Family history is noncontributory. SOCIAL HISTORY: She lives at home with her daughter. She is recently a year ago. She is a former smoker. She stopped smoking 5 months ago. Last travel was in May, they went to [place]. She works as a banking assistant. Review of systems is as per HPI. There is no nausea, vomiting, diarrhea, or dysuria. PHYSICAL EXAMINATION: General: She is awake and alert. She still complains of discomfort when she breathes and a sensation of shortness of breath. Vital Signs: Temperature is 98. Pulse of 73. Blood pressure 126/74. Respiratory rate is 18. She weighs 145 pounds. HEENT: She is normocephalic. Her eyes are anicteric. Neck: Supple. Lungs: Bilateral rhonchi and wheezes. Heart: Regular rate and rhythm. Abdomen: Soft, nontender. She has no CVA or suprapubic tenderness. Extremities: Without edema. Skin: She has no rash. Her labs are notable for a white count of 6.8, hemoglobin 12.5, platelets 223, BUN 21, creatinine 0.9. LFTs are normal. Glucose is 105. Urinalysis is notable for 2+ leukocytes with 45 white cells, many epi's and much mucous. Cultures are pending. Throat culture rapid group A streptococcus was negative. On throat exam, she has no exudates. An influenza screen was done which was negative as well. In summary, this is a 60-year-old woman admitted with 3-day history of worsening cough, chest congestion with fever, and subjective shortness of breath in the setting of coronary artery disease. She appears to have some bronchospasm now with diffuse wheezing. Would agree with the steroids and nebs as ordered. Would agree with empiric antibiotics. Would follow up her cultures. Influenza screen was negative. Would screen her as well for RSV, given her bronchospasm. Given her history of heart disease, I think it would be reasonable to obtain a BNP and a troponin as well. She is to be seen by Pulmonary. Further recommendations to follow. ROLAN SAMANIEGO M.D. [id number]
[2016-06-27] MEDS ORDERED: PATIENT'S OWN MEDICATION (NON-FORMULARY) (Mometasone/Formoterol [Dulera 100 Mcg/5 Mcg Inha IH SCH (22:00)
[2016-06-27] MEDS ORDERED: RANOLAZINE E.R. 500 MG TABLET (FP) ONE (22:53)
[2016-06-28] MEDS: methylPREDNISolone NA SUCC 125 MG/2 ML VIAL IVPB SCH ×3 (04:21→19:03)
[2016-06-28] MEDS: INSULIN SLIDING SCALE (NOVOLOG) 1 VIAL SQ SCH ×4 (06:23→22:25)
[2016-06-28] MEDS: ALBUTEROL SO4 0.083% IH SOL 2.5 MG/3 ML VIAL.NEB. NEB SCH (06:52)
[2016-06-28] MEDS ORDERED: RANOLAZINE E.R. 500 MG TABLET (FP) ONE ×2 (09:41→21:40)
[2016-06-28] MEDS: CEFTRIAXONE 50 ML IVPB SCH (09:43)
[2016-06-28] MEDS: AZITHROMYCIN IVPB 250 ML IVPB SCH (09:43)
[2016-06-28] MEDS: VALSARTAN 160 MG TABLET (UD) PO SCH (09:45)
[2016-06-28] MEDS: HEPARIN NA (PORCINE) 5,000 UNITS/ML 1ML VIAL SQ SCH ×2 (09:47→22:14)
[2016-06-28] MEDS: amLODIPine BESYLATE 5 MG TABLET (FP) PO SCH (09:49)
[2016-06-28] MEDS: CARVEDILOL 25 MG TABLET (FP) PO SCH (09:49)
[2016-06-28] MEDS: EZETIMIBE 10 MG TABLET (FP) PO SCH (09:49)
[2016-06-28] MEDS: ASPIRIN 325 MG TABLET PO SCH (09:49)
[2016-06-28] MEDS: HYDROCHLOROTHIAZIDE 25 MG TABLET (FP) PO SCH (09:49)
[2016-06-28] MEDS: RANOLAZINE E.R. 1,000 MG TABLET (FP) PO SCH ×2 (09:51→22:15)
--- NOTE | 2016-06-28 10:17 | MSN ---
Progress Note (SOAP) - Subjective Chief Complaint: SOB and cough History of Present Illness: Patient is a 60 y/o female wiht a PHMX of HTN, CAD s/p stents 2004/2005, COPD, chronic back pain s/p laminectomy, hypercholesteroalemia who presents to the with SOB and cough 2x days. Patient says she feels better today but that she still has a cough and that she feels like she cannot cough up what is in her lungs. When she does produce sputum it is clear with some yellow. She denies dizziness, chest pain , frequency. She says she still has a headache and some SOB on exertion. - Current Medications Current Medications: Active Medications Albuterol Sulfate (Ventolin 0.083% Nebulizer Soln -) 1 amp NEB TIDR [facility] Last Admin: 06/28/16 06:52 Dose: 1 amp Albuterol/Ipratropium (Duoneb -) 1 amp NEB Q4H PRN PRN Reason: SHORTNESS OF BREATH Amlodipine Besylate (Norvasc -) 5 mg PO DAILY [facility] Last Admin: 06/28/16 09:49 Dose: 5 mg Aspirin (Asa -) 325 mg PO DAILY [facility] Last Admin: 06/28/16 09:49 Dose: 325 mg Carvedilol (Coreg -) 25 mg PO DAILY [facility] Last Admin: 06/28/16 09:49 Dose: 25 mg Ezetimibe (Zetia -) 10 mg PO DAILY [facility] Last Admin: 06/28/16 09:49 Dose: 10 mg Heparin Sodium (Porcine) (Heparin -) 5,000 unit SQ BID [facility] Last Admin: 06/28/16 09:47 Dose: 5,000 unit Hydrochlorothiazide (Hctz -) 25 mg PO DAILY [facility] Last Admin: 06/28/16 09:49 Dose: 25 mg Sodium Chloride (Normal Saline -) 1,000 mls @ 100 mls/hr IV ASDIR [facility] Last Admin: 06/27/16 17:49 Dose: Not Given Azithromycin (Zithromax 500mg Ivpb (Pre-Docked)) 250 mls @ 250 mls/hr IVPB DAILY [facility] Last Admin: 06/28/16 09:43 Dose: 250 mls/hr Ceftriaxone Sodium (Rocephin 1gm Ivpb (Pre-Docked)) 50 mls @ 100 mls/hr IVPB DAILY [facility] Last Admin: 06/28/16 09:43 Dose: 100 mls/hr Insulin Aspart (Novolog Vial Sliding Scale -) 1 vial SQ ACHS [facility] PRN Reason: Protocol Last Admin: 06/28/16 06:23 Dose: 2 unit Methylprednisolone Sodium Succinate (Solu-Medrol -) 60 mg IVPB Q8H-IV [facility] Last Admin: 06/28/16 09:43 Dose: 60 mg Ranolazine (Ranexa -) 1,000 mg PO BID [facility] Last Admin: 06/28/16 09:51 Dose: 1,000 mg Rosuvastatin Calcium (Crestor -) 40 mg PO HS [facility] Last Admin: 06/27/16 22:59 Dose: 40 mg Valsartan (Diovan -) 320 mg PO DAILY [facility] Last Admin: 06/28/16 09:45 Dose: 320 mg - Objective Vital Signs: Vital Signs Temperature 99.1 F 06/28/16 09:00 Pulse Rate 87 06/28/16 09:00 Respiratory Rate 20 06/28/16 09:00 Blood Pressure 162/101 06/28/16 09:00 O2 Sat by Pulse Oximetry (%) 98 06/27/16 21:00 Constitutional: Yes: Well Nourished, No Distress, Calm Eyes: Yes: WNL, Conjunctiva Clear, EOM Intact, PERRL HENT: Yes: WNL, Atraumatic, Normocephalic Neck: Yes: WNL, Supple, Trachea Midline, Tenderness Cardiovascular: Yes: WNL, Regular Rate and Rhythm, S1, S2 Respiratory: Yes: Cough, On Nasal O2 (2L), SOB, SOB on Exertion, Wheezes Gastrointestinal: Yes: WNL, Normal Bowel Sounds, Soft Musculoskeletal: Yes: WNL, Muscle Weakness Extremities: Yes: WNL Neurological: Yes: WNL, Alert, Oriented, Cran Nerves II-XII Intact, Weakness Psychiatric: Yes: WNL, Alert, Oriented Labs Lab Results: CBC, BMP 06/27/16 06:30 06/27/16 06:30 Assessment/Plan 60 year old female with significant past medical hx of Hypertension, CAD s/p stent 2004/2005, COPD (No home oxygen, no prior hospitalization), chronic back pain s/p laminectomy presented to the ED with the complaints of shortness of breath and cough x 2 days. She is admitted for COPD exacerbation. Acute exacerbation of COPD -In the ED, patient received Ceftriaxone, Azithromycin, Duoneb, Solumedrol, tylenol -Ceftriaxone/ Azithromycin will cover questionable pneumonia - Duoneb Q6H Stanislaw an dQ4H PRN -Saturation 98% 2L -Nasal Oxygen PRN -Blood culture-no growth yet-awaiting result -Urine for Legionella Ag and strep ag-negative -Influenza negative -RSV negative -Strep negative -Throat culture negative -added one dose of Solu medrol -on Solu-medrol 60 mg Q8H [facility] Sepsis secondary to most likely Urinary tract infection -UA Leukocyte esterase ++, RBC 49, WBC 45 -Continue Ceftriaxone -IV NS @ 100mls -Plenty of oral fluids -Urine culture pending Progressing towards LONI. -Creatinine 0.9 today,improved -IV fluids continued -Avoid nephrotoxic drugs Hypokalemia and Hypomagnesemia; -K-3.3, repleted in the ED -CMP, Mg 2.7 yesterday CAD s/p stents, Hypertension, Hyperlipidemia -Continue home meds: Aspirin, Olmesartan/HCTZ, Carvedilol 25mg Daily, Rosuvastatin 40mg HS, Felodipine, Ranolazine, Ezetimibe -ordered BNP 489 and troponins negative Headache; -ordered Ibuprofen 400 mg IV FEN -IV NS @ 100mls/hr -No changes today -Sodium controlled diet Prophylaxis For DVT- Heparin sq For GI- Not indicated
--- NOTE | 2016-06-28 11:37 | PN ---
Progress Note (short form) - Note Progress Note: PULMONARY Breathing about the same. Not much improvement. No fevers or chills. + nonproductive cough. Last Vital Signs Temp Pulse Resp BP Pulse Ox 99.1 F 87 20 162/101 98 06/28/16 09:00 06/28/16 09:00 06/28/16 09:00 06/28/16 09:00 06/27/16 21:00 Gen: NAD at rest Heart: RRR Lung: poor air movement, scattered wheezes, rhonchi Abd: soft, nontender Ext: no edema CBC, BMP 06/27/16 06:30 06/27/16 06:30 Active Medications Albuterol Sulfate (Ventolin 0.083% Nebulizer Soln -) 1 amp NEB TIDR [facility] Last Admin: 06/28/16 06:52 Dose: 1 amp Albuterol/Ipratropium (Duoneb -) 1 amp NEB Q4H PRN PRN Reason: SHORTNESS OF BREATH Amlodipine Besylate (Norvasc -) 5 mg PO DAILY [facility] Last Admin: 06/28/16 09:49 Dose: 5 mg Aspirin (Asa -) 325 mg PO DAILY [facility] Last Admin: 06/28/16 09:49 Dose: 325 mg Carvedilol (Coreg -) 25 mg PO DAILY [facility] Last Admin: 06/28/16 09:49 Dose: 25 mg Ezetimibe (Zetia -) 10 mg PO DAILY [facility] Last Admin: 06/28/16 09:49 Dose: 10 mg Heparin Sodium (Porcine) (Heparin -) 5,000 unit SQ BID [facility] Last Admin: 06/28/16 09:47 Dose: 5,000 unit Hydrochlorothiazide (Hctz -) 25 mg PO DAILY [facility] Last Admin: 06/28/16 09:49 Dose: 25 mg Sodium Chloride (Normal Saline -) 1,000 mls @ 100 mls/hr IV ASDIR [facility] Last Admin: 06/27/16 17:49 Dose: Not Given Azithromycin (Zithromax 500mg Ivpb (Pre-Docked)) 250 mls @ 250 mls/hr IVPB DAILY [facility] Last Admin: 06/28/16 09:43 Dose: 250 mls/hr Ceftriaxone Sodium (Rocephin 1gm Ivpb (Pre-Docked)) 50 mls @ 100 mls/hr IVPB DAILY [facility] Last Admin: 06/28/16 09:43 Dose: 100 mls/hr Insulin Aspart (Novolog Vial Sliding Scale -) 1 vial SQ ACHS [facility] PRN Reason: Protocol Last Admin: 06/28/16 06:23 Dose: 2 unit Methylprednisolone Sodium Succinate (Solu-Medrol -) 60 mg IVPB Q8H-IV [facility] Last Admin: 06/28/16 09:43 Dose: 60 mg Ranolazine (Ranexa -) 1,000 mg PO BID [facility] Last Admin: 06/28/16 09:51 Dose: 1,000 mg Rosuvastatin Calcium (Crestor -) 40 mg PO HS [facility] Last Admin: 06/27/16 22:59 Dose: 40 mg Valsartan (Diovan -) 320 mg PO DAILY [facility] Last Admin: 06/28/16 09:45 Dose: 320 mg A/P Acute COPD Exacerbation UTI r/o Pneumonia vs Viral Syndrome CAD HTN Hyperlipidemia - continue medrol at current dose - inhaled bronchodilators standing and PRN - O2 as needed - antibiotics per ID - f/u cultures - outpt PFTs - DVT prophylaxis
--- NOTE | 2016-06-28 14:19 | PN ---
Progress Note (short form) - Note Progress Note: continues to wheeze and feel SOB feels congested, nonproductive cough Vital Signs Period Temp Pulse Resp BP Sys/Gonzalez Pulse Ox Last 24 Hr 97.7 F-99.1 F 80-93 18-20 137-162/79-101 96-98 cor-rrr lungs bilateral wheeze and rhonchi abd soft,nt ext no edema CBC, BMP 06/27/16 06:30 06/27/16 06:30 Microbiology 06/27/16 20:00 Urine For Antigen Detection Legionella Antigen - Final 06/27/16 20:00 Urine For Antigen Detection Streptococcus pneumoniae Antigen (M - Final 06/26/16 16:00 Throat Throat Culture - Final NO BETA HEMOLYTIC STREPTOCOCCI ISOLATED 06/26/16 16:00 Throat Group A Strep Rapid Antigen - Final 06/26/16 16:00 Nasopharyngeal Swab Respiratory Virus Panel - Preliminary 06/26/16 16:30 Blood - Peripheral Venous Blood Culture - Preliminary NO GROWTH OBTAINED AFTER 24 HOURS, INCUBATION TO CONTINUE FOR 4 DAYS. 06/26/16 16:15 Blood - Peripheral Venous Blood Culture - Preliminary NO GROWTH OBTAINED AFTER 24 HOURS, INCUBATION TO CONTINUE FOR 4 DAYS. 06/26/16 16:00 Nasopharyngeal Swab Influenza Types A,B Antigen (MATTHIEU) - Final 06/26/16 16:00 Nasopharyngeal Swab - Final a/p continues to wheeze- will repeat cxray and pulse oximetry on RA continue antibiotics for possible pneumonia continue steroids/nebs for copd exacerbation d/w medical staff, d/w dr cee will add Tamiflu for possible influenza droplet isolation continue zithromax, will d/c ceftriaxone- blood cultures are negative
[2016-06-28] MEDS: ALBUTEROL SO4 2.5/IPRATROPIUM 0.5 INH SOL 3 ML VIAL.NEB. NEB SCH ×3 (14:45→23:25)
--- NOTE | 2016-06-28 18:00 | PN ---
Physical Exam: SUBJECTIVE: Patient seen and examined. She was complaining of SOB, cough and wheezing. Denies chest pain, palpitations, dizziness. OBJECTIVE: Vital Signs Period Temp Pulse Resp BP Sys/Gonzalez Pulse Ox Last 24 Hr 97.7 F-99.1 F 80-93 18-20 142-162/87-101 96-98 GENERAL: The patient is awake, alert, and fully oriented, in no distress. HEAD: Normal with no signs of trauma. EYES: PERRL, extraocular movements intact, sclera anicteric, conjunctiva clear. No ptosis. ENT: Ears normal, nares patent, oropharynx clear without exudates, moist mucous membranes. NECK: Trachea midline, full range of motion, supple. LUNGS: Breath sounds equal, wheezing and rales bilaterally, no crackles, no accessory muscle use. HEART: Regular rate and rhythm, S1, S2 without murmur, rub or gallop. ABDOMEN: Soft, nontender, nondistended, normoactive bowel sounds, no guarding, no rebound, no hepatosplenomegaly, no masses. EXTREMITIES: 2+ pulses, warm, well-perfused, no edema. NEUROLOGICAL: Cranial nerves II through XII grossly intact. Normal speech, gait not observed. PSYCH: Normal mood, normal affect. SKIN: Warm, dry, normal turgor, no rashes or lesions noted Laboratory Results - last 24 hr 06/27/16 06/27/16 06/27/16 16:40 17:00 23:33 POC Glucometer 191 Creatine Kinase 107 Troponin I < 0.02 B-Natriuretic Peptide 489.09 H RSV Ag Report Status Negative 06/28/16 06/28/16 06/28/16 06:22 12:10 17:25 POC Glucometer 170 160 133 Creatine Kinase Troponin I B-Natriuretic Peptide RSV Ag Report Status Active Medications Generic Name Dose Route Start Last Admin Trade Name Freq PRN Reason Stop Dose Admin Albuterol Sulfate 1 amp 06/28/16 11:40 Ventolin 0.083% Nebulizer Soln - NEB Q4H PRN SHORT OF BREATH/WHEEZING Albuterol/Ipratropium 1 amp 06/28/16 14:00 06/28/16 14:45 Duoneb - NEB 1 amp QID [facility]W Administration Amlodipine Besylate 5 mg 06/27/16 10:00 06/28/16 09:49 Norvasc - PO 5 mg DAILY [facility] Administration Aspirin 325 mg 06/27/16 10:00 06/28/16 09:49 Asa - PO 325 mg DAILY [facility] Administration Carvedilol 25 mg 06/27/16 10:00 06/28/16 09:49 Coreg - PO 25 mg DAILY [facility] Administration Ezetimibe 10 mg 06/27/16 10:00 06/28/16 09:49 Zetia - PO 10 mg DAILY [facility] Administration Heparin Sodium (Porcine) 5,000 unit 06/26/16 22:00 06/28/16 09:47 Heparin - SQ 5,000 unit BID [facility] Administration Hydrochlorothiazide 25 mg 06/27/16 10:00 06/28/16 09:49 Hctz - PO 25 mg DAILY [facility] Administration Azithromycin 250 mls @ 250 mls/hr 06/27/16 20:03 06/28/16 09:43 Zithromax 500mg Ivpb (Pre-Docked) IVPB 250 mls/hr DAILY [facility] Administration Ceftriaxone Sodium 50 mls @ 100 mls/hr 06/27/16 10:00 06/28/16 09:43 Rocephin 1gm Ivpb (Pre-Docked) IVPB 100 mls/hr DAILY [facility] Administration Insulin Aspart 1 vial 06/26/16 22:00 06/28/16 17:26 Novolog Vial Sliding Scale - SQ Not Given ACHS [facility] Protocol Methylprednisolone Sodium Succinate 60 mg 06/27/16 10:00 06/28/16 09:43 Solu-Medrol - IVPB 60 mg Q8H-IV [facility] Administration Ranolazine 1,000 mg 06/26/16 22:00 06/28/16 09:51 Ranexa - PO 1,000 mg BID [facility] Administration Rosuvastatin Calcium 40 mg 06/26/16 22:00 06/27/16 22:59 Crestor - PO 40 mg HS [facility] Administration Valsartan 320 mg 06/27/16 10:00 06/28/16 09:45 Diovan - PO 320 mg DAILY [facility] Administration 06/27/16 20:00 Urine For Antigen Detection Legionella Antigen - Final 06/27/16 20:00 Urine For Antigen Detection Streptococcus pneumoniae Antigen (M - Final 06/26/16 16:00 Throat Throat Culture - Final NO BETA HEMOLYTIC STREPTOCOCCI ISOLATED 06/26/16 16:00 Throat Group A Strep Rapid Antigen - Final 06/26/16 16:00 Nasopharyngeal Swab Respiratory Virus Panel - Preliminary 06/26/16 16:30 Blood - Peripheral Venous Blood Culture - Preliminary NO GROWTH OBTAINED AFTER 24 HOURS, INCUBATION TO CONTINUE FOR 4 DAYS. 06/26/16 16:15 Blood - Peripheral Venous Blood Culture - Preliminary NO GROWTH OBTAINED AFTER 24 HOURS, INCUBATION TO CONTINUE FOR 4 DAYS. 06/26/16 16:00 Nasopharyngeal Swab Influenza Types A,B Antigen (MATTHIEU) - Final 06/26/16 16:00 Nasopharyngeal Swab - Final ASSESSMENT/PLAN: 60 year old female with significant past medical hx of Hypertension, CAD s/p stent , COPD (No home oxygen, no prior hospitalization), chronic back pain s/p laminectomy presented to the ED with the complaints of shortness of breath and cough x 2 days. She is admitted for COPD exacerbation. Acute exacerbation of COPD -In the ED, patient received Ceftriaxone, Azithromycin, Duoneb, Solumedrol, tylenol -Ceftriaxone/ Azithromycin will cover questionable pneumonia -ID consulted will continue abx -Duoneb Q6H Stanislaw an dQ4H PRN -Saturation to be maintained between 88-92% -Nasal Oxygen 2L -Blood culture pending -Urine for Legionella Ag -Influenza negative -added one dose of Solu medrol -on Solu-medrol 60 mg Q8H STANISLAW -repeated CXR, improved -rechecked Sat on RA: 95-96 -will monitor Sepsis secondary to most likely Urinary tract infection - UA Leukocyte esterase ++, RBC 49, WBC 45 -Continue Ceftriaxone -IV NS @ 100mls stopped today -Urine culture pending Progressing towards LONI. -Creatinine improved -Avoid nephrotoxic drugs -BMP in AM Hypokalemia and Hypomagnesemia; -K-3.3, repleted in the ED -CMP, Mg 2.7 CAD s/p stents, Hypertension, Hyperlipidemia -Continue home meds: Aspirin, Olmesartan/HCTZ, Carvedilol 25mg Daily, Rosuvastatin 40mg HS, Felodipine, Ranolazine, Ezetimibe -ordered BNP and troponins to r/o CHF Headache; -ordered Ibuprofen 400 mg IV FEN -No -No changes today -Sodium controlled diet Prophylaxis For DVT- Heparin sq For GI- Not indicated Dispo: Admitted in Med-surg Problem List - Problems (1) COPD exacerbation Code(s): J44.1 - CHRONIC OBSTRUCTIVE PULMONARY DISEASE W (ACUTE) EXACERBATION (2) Fever Code(s): R50.9 - FEVER, UNSPECIFIED Qualifiers: Fever type: unspecified Qualified Code(s): R50.9 - Fever, unspecified (3) Urinary tract infection Code(s): N39.0 - URINARY TRACT INFECTION, SITE NOT SPECIFIED Qualifiers: Hematuria presence: without hematuria (4) Shortness of breath Code(s): R06.02 - SHORTNESS OF BREATH Visit type - Emergency Visit Emergency Visit: Yes ED Registration Date: 06/26/16 Care time: The patient presented to the Emergency Department on the above date and was hospitalized for further evaluation of their emergent condition. - New Patient This patient is new to me today: No - Critical Care Critical Care patient: No
--- NOTE | 2016-06-28 18:12 | PN ---
Teaching Attending Note Name of Resident: Domonique Alexander ATTENDING PHYSICIAN STATEMENT I saw and evaluated the patient. I reviewed the resident's note and discussed the case with the resident. I agree with the resident's findings and plan as documented. SUBJECTIVE: Patient continues to wheeze. OBJECTIVE: Vital Signs Temperature 97.7 F 06/28/16 14:08 Pulse Rate 88 06/28/16 15:15 Respiratory Rate 18 06/28/16 14:08 Blood Pressure 160/92 06/28/16 15:00 O2 Sat by Pulse Oximetry (%) 96 06/28/16 15:15 GENERAL: The patient is awake, alert, and fully oriented, in no distress. HEAD: Normal with no signs of trauma. EYES: PERRL, extraocular movements intact, sclera anicteric, conjunctiva clear. No ptosis. ENT: Ears normal, nares patent, oropharynx clear without exudates, moist mucous membranes. NECK: Trachea midline, full range of motion, supple. LUNGS: Breath sounds equal, positive for wheezing and rhonchi bl, no crackles, no accessory muscle use. HEART: Regular rate and rhythm, S1, S2 without murmur, rub or gallop. ABDOMEN: Soft, nontender, nondistended, normoactive bowel sounds, no guarding, no rebound, no hepatosplenomegaly, no masses. EXTREMITIES: 2+ pulses, warm, well-perfused, no edema. NEUROLOGICAL: Cranial nerves II through XII grossly intact. Normal speech, gait not observed. PSYCH: Normal mood, normal affect. SKIN: Warm, dry, normal turgor, no rashes or lesions noted CBCD WBC 6.8 K/mm3 (4.0-10.0) 06/27/16 06:30 RBC 4.21 M/mm3 (3.60-5.2) 06/27/16 06:30 Hgb 12.5 GM/dL (10.7-15.3) 06/27/16 06:30 Hct 36.8 % (32.4-45.2) 06/27/16 06:30 MCV 87.4 fl (80-96) 06/27/16 06:30 MCHC 34.1 g/dl (32.0-36.0) 06/27/16 06:30 RDW 16.1 % (11.6-15.6) H 06/27/16 06:30 Plt Count 223 K/MM3 (134-434) 06/27/16 06:30 MPV 9.0 fl (7.5-11.1) 06/27/16 06:30 CMP Sodium 142 mmol/L (136-145) 06/27/16 06:30 Potassium 4.1 mmol/L (3.5-5.1) D 06/27/16 06:30 Chloride 108 mmol/L (98-107) H 06/27/16 06:30 Carbon Dioxide 24 mmol/L (21-32) 06/27/16 06:30 Anion Gap 10 (8-16) 06/27/16 06:30 BUN 21 mg/dL (7-18) H D 06/27/16 06:30 Creatinine 0.9 mg/dL (0.55-1.02) 06/27/16 06:30 Creat Clearance w eGFR > 60 (>60) 06/27/16 06:30 Random Glucose 135 mg/dL (74-106) H D 06/27/16 06:30 Calcium 9.0 mg/dL (8.5-10.1) 06/27/16 06:30 Total Bilirubin 0.3 mg/dL (0.2-1.0) D 06/27/16 06:30 AST 17 U/L (15-37) D 06/27/16 06:30 ALT 44 U/L (12-78) D 06/27/16 06:30 Alkaline Phosphatase 101 U/L (45-117) 06/27/16 06:30 Total Protein 6.1 g/dl (6.4-8.2) L 06/27/16 06:30 Albumin 3.3 g/dl (3.4-5.0) L 06/27/16 06:30 CARDIAC ENZYMES Creatine Kinase 107 IU/L (26-192) 06/27/16 16:40 Troponin I < 0.02 ng/ml (0.00-0.05) 06/27/16 16:40 Current Medications Generic Name Dose Route Start Last Admin Trade Name Freq PRN Reason Stop Dose Admin Albuterol Sulfate 1 amp 06/28/16 11:40 Ventolin 0.083% Nebulizer Soln - NEB Q4H PRN SHORT OF BREATH/WHEEZING Albuterol/Ipratropium 1 amp 06/28/16 14:00 06/28/16 14:45 Duoneb - NEB 1 amp QID FABIO Administration Amlodipine Besylate 5 mg 06/27/16 10:00 06/28/16 09:49 Norvasc - PO 5 mg DAILY [facility] Administration Aspirin 325 mg 06/27/16 10:00 06/28/16 09:49 Asa - PO 325 mg DAILY [facility] Administration Carvedilol 25 mg 06/27/16 10:00 06/28/16 09:49 Coreg - PO 25 mg DAILY [facility] Administration Ezetimibe 10 mg 06/27/16 10:00 06/28/16 09:49 Zetia - PO 10 mg DAILY [facility] Administration Heparin Sodium (Porcine) 5,000 unit 06/26/16 22:00 06/28/16 09:47 Heparin - SQ 5,000 unit BID [facility]IO Administration Hydrochlorothiazide 25 mg 06/27/16 10:00 06/28/16 09:49 Hctz - PO 25 mg DAILY [facility] Administration Azithromycin 250 mls @ 250 mls/hr 06/27/16 20:03 06/28/16 09:43 Zithromax 500mg Ivpb (Pre-Docked) IVPB 250 mls/hr DAILY [facility] Administration Ceftriaxone Sodium 50 mls @ 100 mls/hr 06/27/16 10:00 06/28/16 09:43 Rocephin 1gm Ivpb (Pre-Docked) IVPB 100 mls/hr DAILY [facility] Administration Insulin Aspart 1 vial 06/26/16 22:00 06/28/16 17:26 Novolog Vial Sliding Scale - SQ Not Given ACHS [facility] Protocol Methylprednisolone Sodium Succinate 60 mg 06/27/16 10:00 06/28/16 09:43 Solu-Medrol - IVPB 60 mg Q8H-IV [facility]IO Administration Ranolazine 1,000 mg 06/26/16 22:00 06/28/16 09:51 Ranexa - PO 1,000 mg BID [facility] Administration Rosuvastatin Calcium 40 mg 06/26/16 22:00 06/27/16 22:59 Crestor - PO 40 mg HS [facility] Administration Valsartan 320 mg 06/27/16 10:00 06/28/16 09:45 Diovan - PO 320 mg DAILY [facility] Administration ASSESSMENT AND PLAN: 60 year old female with significant past medical hx of Hypertension, CAD s/p stent , COPD (No home oxygen, no prior hospitalization), chronic back pain s/p laminectomy presented to the ED with the complaints of shortness of breath and cough x 2 days. She is admitted for COPD exacerbation. #Acute exacerbation of COPD with possible Pneumonia on Rocephin/Zithromax , steroid IV increased to 60mg iv steroid tid , also added Tamiflu for possible influenza ,droplet isolation as per ID. # s/p Sepsis secondary to most likely Urinary tract infection as well on Rocephin contiinue # Hypokalemia and Hypomagnesemia; repleted #CAD s/p stents, Hypertension, Hyperlipidemia continue current therapy #s/p Headache;given IV Ibuprofen 400 mg IV Prophylaxis DVT- Heparin sq
[2016-06-28] MEDS: OSELTAMIVIR PHOSPHATE 75 MG CAPSULE PO SCH ×2 (19:03→19:58)
[2016-06-28] MEDS: ROSUVASTATIN CA 20 MG TABLET (FP) PO SCH (22:14)
[2016-06-29] MEDS: methylPREDNISolone NA SUCC 125 MG/2 ML VIAL IVPB SCH ×2 (02:15→09:50)
[2016-06-29] MEDS: INSULIN SLIDING SCALE (NOVOLOG) 1 VIAL SQ SCH ×4 (06:16→22:34)
[2016-06-29] MEDS: ALBUTEROL SO4 0.083% IH SOL 2.5 MG/3 ML VIAL.NEB. NEB PRN ×2 (06:40→17:45)
[2016-06-29] MEDS ORDERED: IBUPROFEN 400 MG TABLET (FP) PO ONE (06:45)
--- NOTE | 2016-06-29 08:35 | MSN ---
Progress Note (SOAP) - Subjective Chief Complaint: SOB and cough History of Present Illness: Patient is a 60 y/o female with a pmhx of HTN, CAD s/p stents, COPD, chronic back pain s/p laminectomy, hypercholesterolemia who presents with cough and SOB. She says she still feels like there is congestion in her lungs that she cannot cough up. When she is able to produce sputum it is mostly clear with some yellow mucus. She states that last night she had an episode of pressure in her chest that lasted 5 minutes or so and radiated into her left arm extending to her elbow. She says she feels fine now. She also says she had an episode of epistaxis last night that started spontaneously but has now resolved. She denies chest pain, back pain and frequency, burning and urgency with urination. She says she still has SOB on exertion, sore throat, cough and headache. - Current Medications Current Medications: Active Medications Albuterol Sulfate (Ventolin 0.083% Nebulizer Soln -) 1 amp NEB Q4H PRN PRN Reason: SHORT OF BREATH/WHEEZING Last Admin: 06/29/16 06:40 Dose: 1 amp Albuterol/Ipratropium (Duoneb -) 1 amp NEB QID [facility] Last Admin: 06/28/16 23:25 Dose: 1 amp Amlodipine Besylate (Norvasc -) 5 mg PO DAILY [facility] Last Admin: 06/28/16 09:49 Dose: 5 mg Aspirin (Asa -) 325 mg PO DAILY [facility] Last Admin: 06/28/16 09:49 Dose: 325 mg Carvedilol (Coreg -) 25 mg PO DAILY [facility] Last Admin: 06/28/16 09:49 Dose: 25 mg Ezetimibe (Zetia -) 10 mg PO DAILY [facility] Last Admin: 06/28/16 09:49 Dose: 10 mg Heparin Sodium (Porcine) (Heparin -) 5,000 unit SQ BID [facility] Last Admin: 06/28/16 22:14 Dose: 5,000 unit Hydrochlorothiazide (Hctz -) 25 mg PO DAILY [facility] Last Admin: 06/28/16 09:49 Dose: 25 mg Azithromycin (Zithromax 500mg Ivpb (Pre-Docked)) 250 mls @ 250 mls/hr IVPB DAILY [facility] Last Admin: 06/28/16 09:43 Dose: 250 mls/hr Insulin Aspart (Novolog Vial Sliding Scale -) 1 vial SQ ACHS [facility] PRN Reason: Protocol Last Admin: 06/29/16 06:16 Dose: Not Given Methylprednisolone Sodium Succinate (Solu-Medrol -) 60 mg IVPB Q8H-IV [facility] Last Admin: 06/29/16 02:15 Dose: 60 mg Oseltamivir Phosphate (Tamiflu -) 75 mg PO BID [facility] Last Admin: 06/28/16 19:58 Dose: 75 mg Ranolazine (Ranexa -) 1,000 mg PO BID [facility] Last Admin: 06/28/16 22:15 Dose: 1,000 mg Rosuvastatin Calcium (Crestor -) 40 mg PO HS [facility] Last Admin: 06/28/16 22:14 Dose: 40 mg Valsartan (Diovan -) 320 mg PO DAILY [facility] Last Admin: 06/28/16 09:45 Dose: 320 mg - Objective Vital Signs: Vital Signs Temperature 98.3 F 06/29/16 06:00 Pulse Rate 78 06/29/16 06:00 Respiratory Rate 18 06/29/16 06:00 Blood Pressure 141/92 06/29/16 06:00 O2 Sat by Pulse Oximetry (%) 96 06/28/16 21:00 Constitutional: Yes: Well Nourished, No Distress, Calm Eyes: Yes: WNL, Conjunctiva Clear, EOM Intact HENT: Yes: WNL, Atraumatic, Normocephalic Neck: Yes: WNL, Supple, Trachea Midline, Lymphadenopathy, Tenderness Cardiovascular: Yes: WNL, Regular Rate and Rhythm, S1, S2 Respiratory: Yes: Cough, SOB on Exertion, Wheezes Gastrointestinal: Yes: WNL, Normal Bowel Sounds, Soft Musculoskeletal: Yes: WNL Extremities: Yes: WNL Neurological: Yes: WNL, Alert, Oriented Additional Findings/Remarks: On chest palpation there is no reproducible pain Labs Lab Results: CBC, BMP 06/27/16 06:30 Imaging - Results X-ray: Report Reviewed, Image Reviewed (Decreased interstitial markings from previous CXR) Assessment/Plan 60 year old female with significant past medical hx of Hypertension, CAD s/p stent 2004/2005, COPD (No home oxygen, no prior hospitalization), chronic back pain s/p laminectomy, hypercholesterolemia presented to the ED with the complaints of shortness of breath and cough x 2 days. She is admitted for COPD exacerbation. #Acute exacerbation of COPD with possible Pneumonia -conitnue Zithromax-changed to po for 5 days per ID -Add advair -steroid IV decreased to 40mg iv steroid bid -added Tamiflu for possible influenza -Continue to monitor RSV results to see if Tamiflu is needed -droplet isolation as per ID. # s/p Sepsis secondary to most likely Urinary tract infection -d/c rocephin due lack of symptoms for UTI -Urine culture negative #chest pain -continue home meds -EKG #CAD s/p stents, Hypertension, Hyperlipidemia -continue current therapy #s/p Headache -Oral Ibuprofen 400 mg #Prophylaxis DVT -Heparin sq
[2016-06-29] MEDS ORDERED: RANOLAZINE E.R. 500 MG TABLET (FP) ONE ×2 (09:40→20:47)
[2016-06-29] MEDS ORDERED: PT OWN MED DRAWER 7, Y5N ONE (09:40)
[2016-06-29] MEDS: amLODIPine BESYLATE 5 MG TABLET (FP) PO SCH (09:47)
[2016-06-29] MEDS: ASPIRIN 325 MG TABLET PO SCH (09:47)
[2016-06-29 09:48] LABS: CALCIUM 8.9 mg/dL (8.5-10.1); CREATININE 1.2 mg/dL (0.55-1.02)
[2016-06-29] MEDS: HYDROCHLOROTHIAZIDE 25 MG TABLET (FP) PO SCH (09:48)
[2016-06-29] MEDS: EZETIMIBE 10 MG TABLET (FP) PO SCH (09:48)
[2016-06-29] MEDS: RANOLAZINE E.R. 1,000 MG TABLET (FP) PO SCH ×2 (09:48→21:04)
[2016-06-29] MEDS: OSELTAMIVIR PHOSPHATE 75 MG CAPSULE PO SCH ×2 (09:48→21:07)
[2016-06-29] MEDS: CARVEDILOL 25 MG TABLET (FP) PO SCH (09:48)
[2016-06-29] MEDS: AZITHROMYCIN IVPB 250 ML IVPB SCH (09:49)
[2016-06-29] MEDS: HEPARIN NA (PORCINE) 5,000 UNITS/ML 1ML VIAL SQ SCH ×2 (09:49→21:04)
[2016-06-29] MEDS: VALSARTAN 160 MG TABLET (UD) PO SCH (09:49)
[2016-06-29] MEDS: ALBUTEROL SO4 2.5/IPRATROPIUM 0.5 INH SOL 3 ML VIAL.NEB. NEB SCH ×4 (11:07→22:48)
--- NOTE | 2016-06-29 14:18 | PN ---
Progress Note (short form) - Note Progress Note: breathing somewhat improved Vital Signs Period Temp Pulse Resp BP Sys/Gonzalez Pulse Ox Last 24 Hr 97.3 F-98.3 F 78-88 18-18 133-162/88-95 96-96 cor-rrr lungs scattered wheeze abd soft,nt ext no edema CBC, BMP 06/27/16 06:30 06/29/16 07:35 Microbiology 06/27/16 20:00 Urine - Urine Clean Catch Urine Culture - Final NO GROWTH OBTAINED 06/26/16 16:30 Blood - Peripheral Venous Blood Culture - Preliminary NO GROWTH OBTAINED AFTER 48 HOURS, INCUBATION TO CONTINUE FOR 3 DAYS. 06/26/16 16:15 Blood - Peripheral Venous Blood Culture - Preliminary NO GROWTH OBTAINED AFTER 48 HOURS, INCUBATION TO CONTINUE FOR 3 DAYS. 06/27/16 20:00 Urine For Antigen Detection Legionella Antigen - Final 06/27/16 20:00 Urine For Antigen Detection Streptococcus pneumoniae Antigen (M - Final 06/26/16 16:00 Throat Throat Culture - Final NO BETA HEMOLYTIC STREPTOCOCCI ISOLATED 06/26/16 16:00 Throat Group A Strep Rapid Antigen - Final 06/26/16 16:00 Nasopharyngeal Swab Respiratory Virus Panel - Preliminary 06/26/16 16:00 Nasopharyngeal Swab Influenza Types A,B Antigen (MATTHIUE) - Final 06/26/16 16:00 Nasopharyngeal Swab - Final rsv ag negative a/p copd exacerbation tamiflu added although antigen negative (sensitivity of antigen is approx 90%) can change zithromax to po- complete 5 days hx cad d/w hospitilist
[2016-06-29] MEDS: FLUTICASONE/SALMETEROL 100 MCG/50 MCG DISKUS IH SCH ×2 (14:55→21:07)
--- NOTE | 2016-06-29 15:34 | EKG ---
Test Reason : Blood Pressure : / mmHG Vent. Rate : 067 BPM Atrial Rate : 067 BPM P-R Int : 122 ms QRS Dur : 088 ms QT Int : 418 ms P-R-T Axes : 051 055 035 degrees QTc Int : 441 ms NORMAL SINUS RHYTHM NORMAL ECG WHEN COMPARED WITH ECG OF 26-JUN-2016 16:59, VENT. RATE HAS DECREASED BY [address] NO LONGER DEPRESSED IN ANTEROLATERAL LEADS Confirmed by ALEKSANDAR MCCONNELL, DAYTON ([id number]) on 06/29/2016 3:34:24 PM Referred By: Janusz JENSEN Confirmed By:DAYTON HUERTAS MD
--- NOTE | 2016-06-29 15:57 | PN ---
Progress Note (short form) - Note Progress Note: PULMONARY NOT SUBJECTIVELY BETTER VSS/AFEBRILE ANICTERIC B/L INS/EXP WHEEZE S1S2 BS+ SOFT NO EDEMA LABS/MEDS/NOTES/IMAGING REVIEWED A/P Acute COPD Exacerbation UTI CAD HTN Hyperlipidemia - continue medrol change to 40mg Q6h - inhaled bronchodilators standing and PRN - O2 as needed - antibiotics per ID - f/u cultures - outpt PFTs - DVT prophylaxis - daily peak flow Faith ORELLANA MD
--- NOTE | 2016-06-29 18:11 | PN ---
Teaching Attending Note Name of Resident: Domonique Alexander ATTENDING PHYSICIAN STATEMENT I saw and evaluated the patient. I reviewed the resident's note and discussed the case with the resident. I agree with the resident's findings and plan as documented. SUBJECTIVE: cont to feel SOB , raymundo on exertion . no PC , cont to have cough . OBJECTIVE: NAD CV : RRR Lungs scattered wheezes ( getting her NEb treatment now ) ext : no edema ASSESSMENT AND PLAN: 60 y/o lady with h/o COPD . CAD , HTN , back pain , who presented with SOB and was found tohave acute COPD exacerbation 1- Acute COPD exacerbation : slightly improving . - cont steroids - cont Nebs - Add Advair . - no evidence of PNA , off Ceftriaxone. cont Azithro for total of 5 days for acute bronchitis 2- pyuria: with no sx of UTI. U cx pending. no need for treatment 3- mild LONI : probably prerenal azotemia . hold HCTZ. encourage po hydration repeat renal function in am , if cont to worsen will give IVF and hold ARB 4- HTN: cont BB , and valsartan 5- dispo : HLOC
[2016-06-29] MEDS ORDERED: INSULIN (NOVOLOG) ASPART 100 UNITS/ML 10ML VIAL ONE ×2 (18:45→22:04)
[2016-06-29] MEDS: methylPREDNISolone NA SUCC 40 MG/1 ML VIAL IVPB SCH (21:03)
[2016-06-29] MEDS: ROSUVASTATIN CA 20 MG TABLET (FP) PO SCH (21:03)
[2016-06-29] MEDS ORDERED: methylPREDNISolone NA SUCC 125 MG/2 ML VIAL IVPB SCH (22:00)
[2016-06-30] MEDS: methylPREDNISolone NA SUCC 40 MG/1 ML VIAL IVPB SCH ×4 (02:27→21:33)
[2016-06-30] MEDS: INSULIN SLIDING SCALE (NOVOLOG) 1 VIAL SQ SCH ×4 (06:05→21:47)
[2016-06-30] MEDS: ALBUTEROL SO4 0.083% IH SOL 2.5 MG/3 ML VIAL.NEB. NEB PRN (07:35)
--- NOTE | 2016-06-30 08:10 | MSN ---
Progress Note (SOAP) - Subjective Chief Complaint: SOB and cough History of Present Illness: Patient is a 60 y/o female with a pmhx of HTN, CAD s/p stents 2004/2005, COPD, chronic back pain s/p laminectomy and hyperlipidemia who presented with the chief complaint of SOB and cough. She states she feels a little better this morning but that she still cannot cough up what is in her lungs. Her headache has improved. She is complaining of abdominal pain with cough and palpation. She attributes the abdominal pain to being stuck with needles from insulin and heparin. This morning she says her right foot is numb and swollen but that this is a chronic issue that seems to come and go. She states that last night she had another episode of epistaxis but was not as bad as the previous night. She denies back pain, dizziness, and chest pain. She says she still has a sore throat and SOB on exertion and with talking. - Current Medications Current Medications: Active Medications Albuterol Sulfate (Ventolin 0.083% Nebulizer Soln -) 1 amp NEB Q4H PRN PRN Reason: SHORT OF BREATH/WHEEZING Last Admin: 06/30/16 07:35 Dose: 1 amp Albuterol/Ipratropium (Duoneb -) 1 amp NEB QID [facility] Last Admin: 06/29/16 22:48 Dose: 1 amp Amlodipine Besylate (Norvasc -) 5 mg PO DAILY [facility] Last Admin: 06/29/16 09:47 Dose: 5 mg Aspirin (Asa -) 325 mg PO DAILY [facility] Last Admin: 06/29/16 09:47 Dose: 325 mg Carvedilol (Coreg -) 25 mg PO DAILY [facility] Last Admin: 06/29/16 09:48 Dose: 25 mg Ezetimibe (Zetia -) 10 mg PO DAILY [facility] Last Admin: 06/29/16 09:48 Dose: 10 mg Heparin Sodium (Porcine) (Heparin -) 5,000 unit SQ BID [facility] Last Admin: 06/29/16 21:04 Dose: 5,000 unit Azithromycin (Zithromax 500mg Ivpb (Pre-Docked)) 250 mls @ 250 mls/hr IVPB DAILY [facility] Last Admin: 06/29/16 09:49 Dose: 250 mls/hr Insulin Aspart (Novolog Vial Sliding Scale -) 1 vial SQ ACHS [facility] PRN Reason: Protocol Last Admin: 06/30/16 06:05 Dose: 2 unit Methylprednisolone Sodium Succinate (Solu-Medrol -) 40 mg IVPB Q6H-IV [facility] Last Admin: 06/30/16 02:27 Dose: 40 mg Oseltamivir Phosphate (Tamiflu -) 75 mg PO BID [facility] Last Admin: 06/29/16 21:07 Dose: 75 mg Ranolazine (Ranexa -) 1,000 mg PO BID [facility] Last Admin: 06/29/16 21:04 Dose: 1,000 mg Rosuvastatin Calcium (Crestor -) 40 mg PO HS [facility] Last Admin: 06/29/16 21:03 Dose: 40 mg Fluticasone/Salmeterol (Advair 100mcg/50mcg -) 1 puff IH BID [facility] Last Admin: 06/29/16 21:07 Dose: 1 puff Valsartan (Diovan -) 320 mg PO DAILY [facility] Last Admin: 06/29/16 09:49 Dose: 320 mg - Objective Vital Signs: Vital Signs Temperature 98.4 F 06/30/16 06:00 Pulse Rate 77 06/30/16 06:00 Respiratory Rate 20 06/30/16 06:00 Blood Pressure 126/73 06/30/16 06:00 O2 Sat by Pulse Oximetry (%) 95 06/29/16 21:00 Constitutional: Yes: Well Nourished, No Distress, Calm Eyes: Yes: WNL, Conjunctiva Clear, EOM Intact, PERRL HENT: Yes: WNL, Atraumatic, Normocephalic, Nasal Congestion, Thrush Neck: Yes: WNL, Supple, Trachea Midline Cardiovascular: Yes: WNL, Regular Rate and Rhythm, S1, S2 Respiratory: Yes: WNL, CTA Bilaterally, Cough, Wheezes Gastrointestinal: Yes: WNL, Normal Bowel Sounds, Soft, Tenderness (Patient states it is from being stuck with needles) Musculoskeletal: Yes: WNL Extremities: Yes: Other (Right foot swelling) Edema: No Neurological: Yes: WNL, Alert, Oriented, Numbness (right foot) ...Motor Strength: Yes: WNL Psychiatric: Yes: WNL, Alert, Oriented Labs Lab Results: CBC, BMP 06/27/16 06:30 06/29/16 07:35 Imaging - Results EKG: Report Reviewed (Normal sinus and no ST segment depression in anterolateral leads when compared to previous on 06/26), Image Reviewed Assessment/Plan 60 year old female with significant past medical hx of Hypertension, CAD s/p stent , COPD (No home oxygen, no prior hospitalization), chronic back pain s/p laminectomy, hyperlipidemia presented to the ED with the complaints of shortness of breath and cough x 2 days. She is admitted for COPD exacerbation. #Acute exacerbation of COPD with possible Pneumonia -conitnue Zithromax-changed to po for 5 days per ID -continue advair -continue 40mg iv steroid bid -continue Tamiflu for possible influenza -Continue to monitor RSV results to see if Tamiflu is needed -droplet isolation as per ID. #Thrush -Swish and swallow nystatin #Mild LONI -Renal function tests elevated -Start 75 ml IV fluids and hold HCTZ and valsartan-probably prerenal azotemia #chest pain -continue home meds -EKG-normal sinus with no ST segment depression when compared to previous on #CAD s/p stents, Hypertension, Hyperlipidemia -continue current therapy -Increase 10mg amlodipine for BP because valsartan being held #Hyperglycemia -Novolog sliding scale #Foot pain and swelling -Monitor for acute changes #Prophylaxis DVT -Heparin sq
[2016-06-30] MEDS ORDERED: PT OWN MED DRAWER 7, Y5N ONE ×2 (08:51→20:45)
[2016-06-30] MEDS ORDERED: RANOLAZINE E.R. 500 MG TABLET (FP) ONE ×2 (08:51→20:45)
[2016-06-30] MEDS: VALSARTAN 160 MG TABLET (UD) PO SCH (09:10)
[2016-06-30] MEDS: AZITHROMYCIN IVPB 250 ML IVPB SCH (09:10)
[2016-06-30] MEDS: amLODIPine BESYLATE 5 MG TABLET (FP) PO SCH (09:10)
[2016-06-30] MEDS: CARVEDILOL 25 MG TABLET (FP) PO SCH (09:10)
[2016-06-30] MEDS: HEPARIN NA (PORCINE) 5,000 UNITS/ML 1ML VIAL SQ SCH ×2 (09:10→21:34)
[2016-06-30] MEDS: FLUTICASONE/SALMETEROL 100 MCG/50 MCG DISKUS IH SCH ×2 (09:10→21:33)
[2016-06-30] MEDS: ASPIRIN 325 MG TABLET PO SCH (09:10)
[2016-06-30] MEDS: RANOLAZINE E.R. 1,000 MG TABLET (FP) PO SCH ×2 (09:11→21:34)
[2016-06-30] MEDS: OSELTAMIVIR PHOSPHATE 75 MG CAPSULE PO SCH ×2 (09:11→21:35)
[2016-06-30] MEDS: EZETIMIBE 10 MG TABLET (FP) PO SCH (09:11)
[2016-06-30] MEDS: ALBUTEROL SO4 2.5/IPRATROPIUM 0.5 INH SOL 3 ML VIAL.NEB. NEB SCH ×4 (10:01→21:45)
[2016-06-30 11:00] LABS: CALCIUM 8.2 mg/dL (8.5-10.1); CREATININE 1.3 mg/dL (0.55-1.02)
[2016-06-30] MEDS: NYSTATIN 500,000 UNITS/5 ML SUSPENSION PO SCH ×2 (11:20→17:15)
[2016-06-30] MEDS ORDERED: SODIUM CHLORIDE 1,000 ML IV SCH (12:00)
--- NOTE | 2016-06-30 12:07 | PN ---
Teaching Attending Note Name of Resident: Domonique Alexander ATTENDING PHYSICIAN STATEMENT I saw and evaluated the patient. I reviewed the resident's note and discussed the case with the resident. I agree with the resident's findings and plan as documented. SUBJECTIVE: no fever or chills, has abd pain at site of heparin injections . . no diarrhea no dysuria , breathing is stable and she thinks a little bit better today . OBJECTIVE: NAD CV: RRR Lungs scattered wheezes while getting the breathing treatment ext: no edema ASSESSMENT AND PLAN: 60 y/o lady with h/o COPD . CAD , HTN , back pain , who presented with SOB and was found tohave acute COPD exacerbation 1- Acute COPD exacerbation : slightly improving . - peak flow 200 before tx/230 after tx . ideal for her age/weight/[place] is 380. will monitor improvement - cont steroids taper - cont Nebs - cont Advair . - day 4 /5 of azithro for bronchitis , no evidence of PNA 2- Pyuria: with no sx of UTI. U cx Neg 3- Mild LONI : probably prerenal azotemia . cr is slightly worse today Cont hold HCTZ. hold Diovan, increase Norvasc give 24 hr od NS @ 75 cc /hr 4- HTN: cont BB , increase norvasc and hold HCTZ/diovan 5- dispo : HLOC
--- NOTE | 2016-06-30 13:06 | PN ---
Physical Exam: SUBJECTIVE: Patient seen and examined. She is complaining of sore throat, problems with swallowing, productive cough, she is coughing up whitish/ yellowish sputum. She is also complaining of numbness and swelling in her right foot. She has hx of back surgery and since then she experiences swelling of her foot. Denies chest pain, back pain, fever, dysuria, nausea, vomiting, diarrhea. OBJECTIVE: Vital Signs Period Temp Pulse Resp BP Sys/Gonzalez Pulse Ox Last 24 Hr 97.7 F-98.4 F 77-86 18-22 123-170/69-94 95 GENERAL: The patient is awake, alert, and fully oriented, in no acute distress. HEAD: Normal with no signs of trauma. EYES: extraocular movements intact, sclera anicteric, conjunctiva clear. No ptosis. ENT: oropharynx: thrush in soft palate, moist mucous membranes. NECK: Trachea midline, supple. LUNGS: Breath sounds equal, expiratory wheezing bilaterally, no accessory muscle use. HEART: Regular rate and rhythm, S1, S2 without murmur, rub or gallop. ABDOMEN: Soft, tender to palpation in places where she had heparin injection: rlq and left abdomen, nondistended, normoactive bowel sounds, no guarding, no rebound. EXTREMITIES: 2+ pulses, warm, well-perfused, no edema, symmetric, no calf tenderness. NEUROLOGICAL: Normal speech, gait not observed. PSYCH: Normal mood, normal affect. SKIN: Warm, dry, normal turgor, bruising in abdomen. Laboratory Results - last 24 hr 06/29/16 06/29/16 06/30/16 17:22 21:31 05:56 Sodium Potassium Chloride Carbon Dioxide Anion Gap BUN Creatinine POC Glucometer 291 168 170 Random Glucose Calcium 06/30/16 06/30/16 10:15 11:15 Sodium 138 Potassium 3.9 Chloride 100 Carbon Dioxide 28 Anion Gap 10 BUN 32 H Creatinine 1.3 H POC Glucometer 184 Random Glucose 272 H D Calcium 8.2 L Active Medications Generic Name Dose Route Start Last Admin Trade Name Freq PRN Reason Stop Dose Admin Albuterol Sulfate 1 amp 06/28/16 11:40 06/30/16 07:35 Ventolin 0.083% Nebulizer Soln - NEB 1 amp Q4H PRN Administration SHORT OF BREATH/WHEEZING Albuterol/Ipratropium 1 amp 06/28/16 14:00 06/30/16 10:01 Duoneb - NEB 1 amp QID [facility] Administration Amlodipine Besylate 10 mg 07/01/16 10:00 Norvasc - PO DAILY [facility] Aspirin 325 mg 06/27/16 10:00 06/30/16 09:10 Asa - PO 325 mg DAILY [facility] Administration Carvedilol 25 mg 06/27/16 10:00 06/30/16 09:10 Coreg - PO 25 mg DAILY [facility] Administration Ezetimibe 10 mg 06/27/16 10:00 06/30/16 09:11 Zetia - PO 10 mg DAILY [facility] Administration Heparin Sodium (Porcine) 5,000 unit 06/26/16 22:00 06/30/16 09:10 Heparin - SQ 5,000 unit BID [facility] Administration Azithromycin 250 mls @ 250 mls/hr 06/27/16 20:03 06/30/16 09:10 Zithromax 500mg Ivpb (Pre-Docked) IVPB 250 mls/hr DAILY [facility] Administration Sodium Chloride 1,000 mls @ 75 mls/hr 06/30/16 12:00 Normal Saline - IV 07/01/16 11:59 ASDIR [facility] Insulin Aspart 1 vial 06/26/16 22:00 06/30/16 11:20 Novolog Vial Sliding Scale - SQ 2 unit ACHS [facility] Administration Protocol Methylprednisolone Sodium Succinate 40 mg 06/29/16 21:00 06/30/16 09:10 Solu-Medrol - IVPB 40 mg Q6H-IV [facility] Administration Nystatin 500,000 units 06/30/16 12:00 06/30/16 11:20 Nystatin Oral Suspension - PO 500,000 units Q6HPO [facility] Administration Oseltamivir Phosphate 75 mg 06/28/16 18:15 06/30/16 09:11 Tamiflu - PO 75 mg BID [facility] Administration Ranolazine 1,000 mg 06/26/16 22:00 06/30/16 09:11 Ranexa - PO 1,000 mg BID [facility] Administration Rosuvastatin Calcium 40 mg 06/26/16 22:00 06/29/16 21:03 Crestor - PO 40 mg HS [facility] Administration Fluticasone/Salmeterol 1 puff 06/29/16 11:15 06/30/16 09:10 Advair 100mcg/50mcg - IH 1 puff BID [facility] Administration ASSESSMENT/PLAN: 60 year old female with significant past medical hx of Hypertension, CAD s/p 3 stents , COPD (No home oxygen, no prior hospitalization), chronic back pain s/p laminectomy presented to the ED with the complaints of shortness of breath and cough x 2 days. She is admitted for acute COPD exacerbation. Acute exacerbation of COPD -off Ceftriaxone, Azithromycin day 4 out of 5 -ID consulted will continue abx -Duoneb Q6H [facility] an dQ4H PRN -continue Adavair -ordered Peak Flow 200 before Tx and 230 after tx. It should be 380 for her, will f/u tomorrow -Saturation to be maintained between 88-92% -Nasal Oxygen 2L -Blood culture neg -Influenza negative, started Tamiflu for possible Influenza -added one dose of Solu medrol -on Solu-medrol 60 mg Q8H [facility] -repeated CXR, improved -rechecked Sat on RA: 95-96 -will monitor Sepsis secondary to most likely Urinary tract infection - UA Leukocyte esterase ++, RBC 49, WBC 45 -no dysuria, off Ceftriaxone -will resume IVF -Urine culture neg Oral thrush: -probably due to steroids -continue Nystatin 5000 mild LONI. -Creatinine improved -Avoid nephrotoxic drugs -BMP in AM -will increase Norvasc, hold HCTZ -will resume IVF 75 ml/hr/24h Hypokalemia and Hypomagnesemia; -repleated and improved CAD s/p stents, Hypertension, Hyperlipidemia -Continue home meds: Aspirin, Carvedilol 25mg Daily, Rosuvastatin 40mg HS, Felodipine, Ranolazine, Ezetimibe -ordered BNP and troponins to r/o CHF, low suspiction for CHF after seeing the results Headache; -ordered Ibuprofen 400 mg IV at admission -no more headache since then FEN: -Yes -No changes today -Sodium controlled diet Prophylaxis For DVT- Heparin sq For GI- Not indicated Dispo: Admitted in Med-surg Problem List - Problems (1) COPD exacerbation Code(s): J44.1 - CHRONIC OBSTRUCTIVE PULMONARY DISEASE W (ACUTE) EXACERBATION (2) Fever Code(s): R50.9 - FEVER, UNSPECIFIED Qualifiers: Fever type: unspecified Qualified Code(s): R50.9 - Fever, unspecified (3) Urinary tract infection Code(s): N39.0 - URINARY TRACT INFECTION, SITE NOT SPECIFIED Qualifiers: Hematuria presence: without hematuria (4) Shortness of breath Code(s): R06.02 - SHORTNESS OF BREATH Visit type - Emergency Visit Emergency Visit: Yes ED Registration Date: 06/26/16 Care time: The patient presented to the Emergency Department on the above date and was hospitalized for further evaluation of their emergent condition. - New Patient This patient is new to me today: No - Critical Care Critical Care patient: No - Discharge Referral Referred to [facility] Med P.C.: No
--- NOTE | 2016-06-30 13:52 | PN ---
Progress Note (short form) - Note Progress Note: PULMONARY Breathing slowly improving, chest feels looser. No fevers or chills. + nonproductive cough. Last Vital Signs Temp Pulse Resp BP Pulse Ox 98.4 F 77 20 126/73 95 06/30/16 06:00 06/30/16 06:00 06/30/16 06:00 06/30/16 06:00 06/29/16 21:00 Gen: NAD at rest Heart: RRR Lung: better movement, scattered wheezes, rhonchi Abd: soft, nontender Ext: no edema CBC, BMP 06/27/16 06:30 06/30/16 10:15 Active Medications Albuterol Sulfate (Ventolin 0.083% Nebulizer Soln -) 1 amp NEB Q4H PRN PRN Reason: SHORT OF BREATH/WHEEZING Last Admin: 06/30/16 07:35 Dose: 1 amp Albuterol/Ipratropium (Duoneb -) 1 amp NEB QID [facility] Last Admin: 06/30/16 10:01 Dose: 1 amp Amlodipine Besylate (Norvasc -) 10 mg PO DAILY [facility] Aspirin (Asa -) 325 mg PO DAILY [facility] Last Admin: 06/30/16 09:10 Dose: 325 mg Carvedilol (Coreg -) 25 mg PO DAILY [facility] Last Admin: 06/30/16 09:10 Dose: 25 mg Ezetimibe (Zetia -) 10 mg PO DAILY [facility] Last Admin: 06/30/16 09:11 Dose: 10 mg Heparin Sodium (Porcine) (Heparin -) 5,000 unit SQ BID [facility] Last Admin: 06/30/16 09:10 Dose: 5,000 unit Azithromycin (Zithromax 500mg Ivpb (Pre-Docked)) 250 mls @ 250 mls/hr IVPB DAILY [facility] Last Admin: 06/30/16 09:10 Dose: 250 mls/hr Sodium Chloride (Normal Saline -) 1,000 mls @ 75 mls/hr IV ASDIR [facility] Stop: 07/01/16 11:59 Insulin Aspart (Novolog Vial Sliding Scale -) 1 vial SQ ACHS [facility] PRN Reason: Protocol Last Admin: 06/30/16 11:20 Dose: 2 unit Methylprednisolone Sodium Succinate (Solu-Medrol -) 40 mg IVPB Q6H-IV [facility] Last Admin: 06/30/16 09:10 Dose: 40 mg Nystatin (Nystatin Oral Suspension -) 500,000 units PO Q6HPO [facility] Last Admin: 06/30/16 11:20 Dose: 500,000 units Oseltamivir Phosphate (Tamiflu -) 75 mg PO BID [facility] Last Admin: 06/30/16 09:11 Dose: 75 mg Ranolazine (Ranexa -) 1,000 mg PO BID [facility] Last Admin: 06/30/16 09:11 Dose: 1,000 mg Rosuvastatin Calcium (Crestor -) 40 mg PO HS [facility] Last Admin: 06/29/16 21:03 Dose: 40 mg Fluticasone/Salmeterol (Advair 100mcg/50mcg -) 1 puff IH BID [facility] Last Admin: 06/30/16 09:10 Dose: 1 puff A/P Acute COPD Exacerbation UTI r/o Pneumonia vs Viral Syndrome CAD HTN Hyperlipidemia - continue medrol at current dose, can taper in AM if continues to improve - inhaled bronchodilators standing and PRN - O2 as needed - antibiotics per ID - f/u cultures - outpt PFTs - DVT prophylaxis
--- NOTE | 2016-06-30 14:28 | PN ---
Progress Note, Physician History of Present Illness: Dyspneic at rest with cough Receiving nebulizer treatment No c/o fever/ chills - Current Medication List Current Medications: Active Medications Albuterol Sulfate (Ventolin 0.083% Nebulizer Soln -) 1 amp NEB Q4H PRN PRN Reason: SHORT OF BREATH/WHEEZING Last Admin: 06/30/16 07:35 Dose: 1 amp Albuterol/Ipratropium (Duoneb -) 1 amp NEB QID [facility] Last Admin: 06/30/16 14:08 Dose: 1 amp Amlodipine Besylate (Norvasc -) 10 mg PO DAILY [facility] Aspirin (Asa -) 325 mg PO DAILY [facility] Last Admin: 06/30/16 09:10 Dose: 325 mg Carvedilol (Coreg -) 25 mg PO DAILY [facility] Last Admin: 06/30/16 09:10 Dose: 25 mg Ezetimibe (Zetia -) 10 mg PO DAILY [facility] Last Admin: 06/30/16 09:11 Dose: 10 mg Heparin Sodium (Porcine) (Heparin -) 5,000 unit SQ BID [facility] Last Admin: 06/30/16 09:10 Dose: 5,000 unit Azithromycin (Zithromax 500mg Ivpb (Pre-Docked)) 250 mls @ 250 mls/hr IVPB DAILY [facility] Last Admin: 06/30/16 09:10 Dose: 250 mls/hr Sodium Chloride (Normal Saline -) 1,000 mls @ 75 mls/hr IV ASDIR [facility] Stop: 07/01/16 11:59 Last Admin: 06/30/16 14:07 Dose: 75 mls/hr Insulin Aspart (Novolog Vial Sliding Scale -) 1 vial SQ ACHS [facility] PRN Reason: Protocol Last Admin: 06/30/16 11:20 Dose: 2 unit Methylprednisolone Sodium Succinate (Solu-Medrol -) 40 mg IVPB Q6H-IV [facility] Last Admin: 06/30/16 14:07 Dose: 40 mg Nystatin (Nystatin Oral Suspension -) 500,000 units PO Q6HPO [facility] Last Admin: 06/30/16 11:20 Dose: 500,000 units Oseltamivir Phosphate (Tamiflu -) 75 mg PO BID [facility] Last Admin: 06/30/16 09:11 Dose: 75 mg Ranolazine (Ranexa -) 1,000 mg PO BID [facility] Last Admin: 06/30/16 09:11 Dose: 1,000 mg Rosuvastatin Calcium (Crestor -) 40 mg PO HS [facility] Last Admin: 06/29/16 21:03 Dose: 40 mg Fluticasone/Salmeterol (Advair 100mcg/50mcg -) 1 puff IH BID [facility] Last Admin: 06/30/16 09:10 Dose: 1 puff - Objective Vital Signs: Vital Signs Temperature 98.4 F 06/30/16 06:00 Pulse Rate 77 06/30/16 06:00 Respiratory Rate 20 06/30/16 06:00 Blood Pressure 126/73 06/30/16 06:00 O2 Sat by Pulse Oximetry (%) 95 06/29/16 21:00 Constitutional: Yes: Obese Eyes: Yes: Conjunctiva Clear Cardiovascular: Yes: Regular Rate and Rhythm, S1, S2 Respiratory: Yes: Rhonchi, Wheezes Gastrointestinal: Yes: Normal Bowel Sounds, Soft. No: Tenderness Labs: CBC, BMP 06/27/16 06:30 06/30/16 10:15 Assessment/Plan Acute exacerbation COPD Possible Influenza Continue Tamiflu, zithromax Steroids, bronchodilators
[2016-06-30] MEDS: ROSUVASTATIN CA 20 MG TABLET (FP) PO SCH (21:34)
[2016-07-01] MEDS: NYSTATIN 500,000 UNITS/5 ML SUSPENSION PO SCH ×4 (00:50→17:18)
[2016-07-01] MEDS: methylPREDNISolone NA SUCC 40 MG/1 ML VIAL IVPB SCH ×3 (02:45→17:19)
[2016-07-01] MEDS: INSULIN SLIDING SCALE (NOVOLOG) 1 VIAL SQ SCH ×4 (06:27→22:40)
--- NOTE | 2016-07-01 08:09 | MSN ---
Progress Note (SOAP) - Subjective Chief Complaint: Cough and SOB History of Present Illness: 60 y/o female with a pmhx of HTN, COPD, CAD s/p stents, HLD, chronic back pain s /p laminectomy who presents with SOB and cough. Today she is feeling better than yesterday but still is experiencing chest congestion. She explains she is still experiencing sore throat which is improving, right foot swelling, headache cough and abdominal pain from injections. She denies fever, chills, chest pain, back pain, diarrhea and frequency and burning with urination. - Current Medications Current Medications: Active Medications Albuterol Sulfate (Ventolin 0.083% Nebulizer Soln -) 1 amp NEB Q4H PRN PRN Reason: SHORT OF BREATH/WHEEZING Last Admin: 06/30/16 07:35 Dose: 1 amp Albuterol/Ipratropium (Duoneb -) 1 amp NEB QID [facility] Last Admin: 06/30/16 21:45 Dose: 1 amp Amlodipine Besylate (Norvasc -) 10 mg PO DAILY [facility] Aspirin (Asa -) 325 mg PO DAILY [facility] Last Admin: 06/30/16 09:10 Dose: 325 mg Carvedilol (Coreg -) 25 mg PO DAILY [facility] Last Admin: 06/30/16 09:10 Dose: 25 mg Ezetimibe (Zetia -) 10 mg PO DAILY [facility] Last Admin: 06/30/16 09:11 Dose: 10 mg Heparin Sodium (Porcine) (Heparin -) 5,000 unit SQ BID [facility] Last Admin: 06/30/16 21:34 Dose: 5,000 unit Azithromycin (Zithromax 500mg Ivpb (Pre-Docked)) 250 mls @ 250 mls/hr IVPB DAILY [facility] Last Admin: 06/30/16 09:10 Dose: 250 mls/hr Sodium Chloride (Normal Saline -) 1,000 mls @ 75 mls/hr IV ASDIR [facility] Stop: 07/01/16 11:59 Last Admin: 06/30/16 14:07 Dose: 75 mls/hr Insulin Aspart (Novolog Vial Sliding Scale -) 1 vial SQ ACHS [facility] PRN Reason: Protocol Last Admin: 07/01/16 06:27 Dose: 2 unit Methylprednisolone Sodium Succinate (Solu-Medrol -) 40 mg IVPB Q6H-IV [facility] Last Admin: 07/01/16 02:45 Dose: 40 mg Nystatin (Nystatin Oral Suspension -) 500,000 units PO Q6HPO [facility] Last Admin: 07/01/16 06:22 Dose: 500,000 units Oseltamivir Phosphate (Tamiflu -) 75 mg PO BID [facility] Last Admin: 06/30/16 21:35 Dose: 75 mg Ranolazine (Ranexa -) 1,000 mg PO BID [facility] Last Admin: 06/30/16 21:34 Dose: 1,000 mg Rosuvastatin Calcium (Crestor -) 40 mg PO HS [facility] Last Admin: 06/30/16 21:34 Dose: 40 mg Fluticasone/Salmeterol (Advair 100mcg/50mcg -) 1 puff IH BID [facility] Last Admin: 06/30/16 21:33 Dose: 1 puff - Objective Vital Signs: Vital Signs Temperature 98.5 F 07/01/16 03:00 Pulse Rate 80 07/01/16 03:00 Respiratory Rate 20 07/01/16 03:00 Blood Pressure 148/91 07/01/16 03:00 O2 Sat by Pulse Oximetry (%) 96 06/30/16 21:00 Constitutional: Yes: Well Nourished, No Distress, Calm Eyes: Yes: WNL, Conjunctiva Clear, EOM Intact, PERRL HENT: Yes: WNL, Atraumatic, Normocephalic, Nasal Congestion Neck: Yes: Supple, Lymphadenopathy, Tenderness (inferior to left mandible ) Cardiovascular: Yes: WNL, Regular Rate and Rhythm, S1, S2 Respiratory: Yes: Cough, SOB on Exertion, Wheezes Gastrointestinal: Yes: Normal Bowel Sounds, Soft, Tenderness (bruising and upper right quadrant ) Musculoskeletal: Yes: WNL Extremities: Yes: Other (right foot swelling) Edema: Yes Edema: LLE: 2+, RLE: 2+ Integumentary: Yes: Bruising (abdomen) Neurological: Yes: WNL, Alert, Oriented, Numbness (right foot) ...Motor Strength: Yes: WNL Psychiatric: Yes: WNL, Alert, Oriented Labs Lab Results: CBC, BMP 06/27/16 06:30 Assessment/Plan 60 year old female with significant past medical hx of Hypertension, CAD s/p stent 2004/2005, COPD (No home oxygen, no prior hospitalization), chronic back pain s/p laminectomy, hyperlipidemia presented to the ED with the complaints of shortness of breath and cough. She is admitted for COPD exacerbation. #Acute exacerbation of COPD with possible Pneumonia -Last day for zithromax-d/c after administration today -continue advair -decrease steriods to 40mg iv q8h -continue Tamiflu for possible influenza -Continue to monitor RSV results to see if Tamiflu is needed -droplet isolation as per ID. #Thrush -Swish and swallow nystatin for 20 more days #Mild LONI -BUN 28, Cr 1.0-improvement with 75ml IV NS-stop after completion -Hold HCTZ and valsartan-probably prerenal azotemia #abdominal pain -monitor bruising and RUQ pain #CAD s/p stents, Hypertension, Hyperlipidemia -continue current therapy -Increase 10mg amlodipine for BP because valsartan and HCTZ being held #Hyperglycemia -Novolog sliding scale #Foot pain and swelling -Monitor for acute changes #Prophylaxis DVT -Heparin sq
[2016-07-01 08:41] LABS: CALCIUM 8.1 mg/dL (8.5-10.1)
[2016-07-01] MEDS ORDERED: PT OWN MED DRAWER 7, Y5N ONE (09:18)
[2016-07-01] MEDS ORDERED: RANOLAZINE E.R. 500 MG TABLET (FP) ONE ×2 (09:18→21:09)
[2016-07-01] MEDS: ASPIRIN 325 MG TABLET PO SCH (09:55)
[2016-07-01] MEDS: RANOLAZINE E.R. 1,000 MG TABLET (FP) PO SCH ×2 (09:55→22:06)
[2016-07-01] MEDS: amLODIPine BESYLATE 10 MG TABLET (FP) PO SCH (09:55)
[2016-07-01] MEDS: AZITHROMYCIN IVPB 250 ML IVPB SCH (09:56)
[2016-07-01] MEDS: EZETIMIBE 10 MG TABLET (FP) PO SCH (09:56)
[2016-07-01] MEDS: CARVEDILOL 25 MG TABLET (FP) PO SCH (09:56)
[2016-07-01] MEDS: HEPARIN NA (PORCINE) 5,000 UNITS/ML 1ML VIAL SQ SCH ×2 (09:56→21:56)
[2016-07-01] MEDS: FLUTICASONE/SALMETEROL 100 MCG/50 MCG DISKUS IH SCH ×2 (09:58→21:55)
[2016-07-01] MEDS: OSELTAMIVIR PHOSPHATE 75 MG CAPSULE PO SCH ×2 (09:59→22:06)
--- NOTE | 2016-07-01 11:09 | PN ---
Physical Exam: SUBJECTIVE: Patient seen and examined.She is complaining of sore throat, problems with swallowing, productive cough, she is still coughing up whitish/ yellowish sputum.Today she states that her foot is still swollen and numb. She has hx of back surgery and since then she experiences swelling of her R foot. Denies chest pain, back pain, fever, dysuria, nausea, vomiting, diarrhea. OBJECTIVE: Vital Signs Period Temp Pulse Resp BP Sys/Gonzalez Pulse Ox Last 24 Hr 97.5 F-98.5 F 72-83 20-24 131-149/75-91 96 GENERAL: The patient is awake, alert, and fully oriented, in no acute distress. HEAD: Normal with no signs of trauma. EYES: PERRL, extraocular movements intact, sclera anicteric, conjunctiva clear. No ptosis. ENT: Ears normal, nares patent, oropharynx clear without exudates, moist mucous membranes. NECK: Trachea midline, full range of motion, supple. LUNGS: Breath sounds equal, occasionally wheezing at bases bilaterally, no crackles, no accessory muscle use. HEART: Regular rate and rhythm, S1, S2 without murmur, rub or gallop. ABDOMEN: Soft, tender to palpation in lower abdomen, nondistended, normoactive bowel sounds, no guarding, no rebound, no hepatosplenomegaly, bruising in lower abdomen. EXTREMITIES: 2+ pulses, warm, well-perfused, trace edema on right ankle, no calf tenderness. NEUROLOGICAL: Cranial nerves II through XII grossly intact. Normal speech, gait not observed. PSYCH: Normal mood, normal affect. SKIN: Warm, dry, normal turgor, no rashes or lesions noted Laboratory Results - last 24 hr 06/30/16 06/30/16 06/30/16 10:15 11:15 16:52 Sodium 138 Potassium 3.9 Chloride 100 Carbon Dioxide 28 Anion Gap 10 BUN 32 H Creatinine 1.3 H POC Glucometer 184 232 Random Glucose 272 H D Calcium 8.2 L 06/30/16 07/01/16 07/01/16 21:46 06:23 07:40 Sodium 141 Potassium 3.7 Chloride 105 Carbon Dioxide 24 Anion Gap 12 BUN 28 H Creatinine 1.0 D POC Glucometer 209 160 Random Glucose 149 H D Calcium 8.1 L Active Medications Generic Name Dose Route Start Last Admin Trade Name Freq PRN Reason Stop Dose Admin Albuterol Sulfate 1 amp 06/28/16 11:40 06/30/16 07:35 Ventolin 0.083% Nebulizer Soln - NEB 1 amp Q4H PRN Administration SHORT OF BREATH/WHEEZING Albuterol/Ipratropium 1 amp 06/28/16 14:00 06/30/16 21:45 Duoneb - NEB 1 amp QID STANISLAW Administration Amlodipine Besylate 10 mg 07/01/16 10:00 07/01/16 09:55 Norvasc - PO 10 mg DAILY STANISLAW Administration Aspirin 325 mg 06/27/16 10:00 07/01/16 09:55 Asa - PO 325 mg DAILY STANISLAW Administration Carvedilol 25 mg 06/27/16 10:00 07/01/16 09:56 Coreg - PO 25 mg DAILY STANISLAW Administration Ezetimibe 10 mg 06/27/16 10:00 07/01/16 09:56 Zetia - PO 10 mg DAILY STANISLAW Administration Heparin Sodium (Porcine) 5,000 unit 06/26/16 22:00 07/01/16 09:56 Heparin - SQ 5,000 unit BID STANISLAW Administration Sodium Chloride 1,000 mls @ 75 mls/hr 06/30/16 12:00 06/30/16 14:07 Normal Saline - IV 07/01/16 11:59 75 mls/hr ASDIR STANISLAW Administration Insulin Aspart 1 vial 06/26/16 22:00 07/01/16 06:27 Novolog Vial Sliding Scale - SQ 2 unit ACHS STANISLAW Administration Protocol Methylprednisolone Sodium Succinate 40 mg 07/01/16 18:00 Solu-Medrol - IVPB Q8H-IV STANISLAW Nystatin 500,000 units 06/30/16 12:00 07/01/16 06:22 Nystatin Oral Suspension - PO 500,000 units Q6HPO STANISLAW Administration Oseltamivir Phosphate 75 mg 06/28/16 18:15 07/01/16 09:59 Tamiflu - PO 75 mg BID STANISLAW Administration Ranolazine 1,000 mg 06/26/16 22:00 07/01/16 09:55 Ranexa - PO 1,000 mg BID STANISLAW Administration Rosuvastatin Calcium 40 mg 06/26/16 22:00 06/30/16 21:34 Crestor - PO 40 mg HS STANISLAW Administration Fluticasone/Salmeterol 1 puff 06/29/16 11:15 07/01/16 09:58 Advair 100mcg/50mcg - IH 1 puff BID STANISLAW Administration ASSESSMENT/PLAN: 60 year old female with significant past medical hx of Hypertension, CAD s/p 3 stents , COPD (No home oxygen, no prior hospitalization), chronic back pain s/p laminectomy presented to the ED with the complaints of shortness of breath and cough x 2 days. She is admitted for acute COPD exacerbation. Acute exacerbation of COPD; -off Ceftriaxone, Azithromycin DC today after lastr dose at 10 AM -Duoneb Q6H Stanislaw an dQ4H PRN, continue Adavair -ordered Peak Flow 200 before Tx and 230 after tx. It should be 380 for her. Peak flow yesterday in the evening 200 before TX and 250 after, improvement from yesterday. -Saturation to be maintained between 88-92% -Nasal Oxygen 2L -Blood culture neg -Influenza negative, started Tamiflu for possible Influenza -today changed Solu-medrol 60 mg Q6H STANISLAW to 40mg Q8H -repeated CXR, improved Sepsis secondary to most likely Urinary tract infection - UA Leukocyte esterase ++, RBC 49, WBC 45 -no dysuria, off Ceftriaxone - IVF -Urine culture neg Oral thrush: -probably due to steroids, improved today -continue Nystatin 5000 mild LONI. -Creatinine improved -Avoid nephrotoxic drugs -BMP in AM -will increase Norvasc, hold HCTZ -IVF 75 ml/hr/24h Hypokalemia and Hypomagnesemia; -repleated and improved CAD s/p stents, Hypertension, Hyperlipidemia -Continue home meds: Aspirin, Carvedilol 25mg Daily, Rosuvastatin 40mg HS, Felodipine, Ranolazine, Ezetimibe -ordered BNP and troponins to r/o CHF, low suspiction for CHF after seeing the results Headache; -ordered Ibuprofen 400 mg IV at admission -no more headache since then FEN: -Yes -No changes today -Sodium controlled diet Prophylaxis For DVT- Heparin sq For GI- Not indicated Dispo: Admitted in Med-surg Problem List Problem List - Problems (1) COPD exacerbation Code(s): J44.1 - CHRONIC OBSTRUCTIVE PULMONARY DISEASE W (ACUTE) EXACERBATION (2) Fever Code(s): R50.9 - FEVER, UNSPECIFIED Qualifiers: Fever type: unspecified Qualified Code(s): R50.9 - Fever, unspecified (3) Urinary tract infection Code(s): N39.0 - URINARY TRACT INFECTION, SITE NOT SPECIFIED Qualifiers: Hematuria presence: without hematuria (4) Shortness of breath Code(s): R06.02 - SHORTNESS OF BREATH Visit type - Emergency Visit Emergency Visit: Yes ED Registration Date: 06/26/16 Care time: The patient presented to the Emergency Department on the above date and was hospitalized for further evaluation of their emergent condition. - New Patient This patient is new to me today: No - Critical Care Critical Care patient: No - Discharge Referral Referred to [facility] Med P.C.: No
[2016-07-01] MEDS: ALBUTEROL SO4 2.5/IPRATROPIUM 0.5 INH SOL 3 ML VIAL.NEB. NEB SCH ×4 (11:24→23:00)
--- NOTE | 2016-07-01 13:45 | PN ---
Progress Note (short form) - Note Progress Note: PULMONARY MILD SUBJECTIVE VSS/AFEBRILE ANICTERIC B/L INS/EXP WHEEZE S1S2 BS+ SOFT NO EDEMA LABS/MEDS/NOTES/IMAGING REVIEWED PEAK FLOW 200-230 L/M A/P Acute COPD Exacerbation UTI CAD HTN Hyperlipidemia - continue medrol current dose - inhaled bronchodilators standing and PRN - O2 as needed - antibiotics per ID - outpt PFTs - DVT prophylaxis - daily peak flow Faith ORELLANA MD
--- NOTE | 2016-07-01 15:38 | PN ---
Progress Note, Physician History of Present Illness: Feeling better Less dyspnea/ cough / wheeze Afebrile - Current Medication List Current Medications: Active Medications Albuterol Sulfate (Ventolin 0.083% Nebulizer Soln -) 1 amp NEB Q4H PRN PRN Reason: SHORT OF BREATH/WHEEZING Last Admin: 06/30/16 07:35 Dose: 1 amp Albuterol/Ipratropium (Duoneb -) 1 amp NEB QIDR [facility] Last Admin: 07/01/16 11:55 Dose: 1 amp Amlodipine Besylate (Norvasc -) 10 mg PO DAILY [facility] Last Admin: 07/01/16 09:55 Dose: 10 mg Aspirin (Asa -) 325 mg PO DAILY [facility] Last Admin: 07/01/16 09:55 Dose: 325 mg Carvedilol (Coreg -) 25 mg PO DAILY [facility] Last Admin: 07/01/16 09:56 Dose: 25 mg Ezetimibe (Zetia -) 10 mg PO DAILY [facility] Last Admin: 07/01/16 09:56 Dose: 10 mg Heparin Sodium (Porcine) (Heparin -) 5,000 unit SQ BID [facility] Last Admin: 07/01/16 09:56 Dose: 5,000 unit Insulin Aspart (Novolog Vial Sliding Scale -) 1 vial SQ ACHS FABIO PRN Reason: Protocol Last Admin: 07/01/16 12:07 Dose: 6 unit Methylprednisolone Sodium Succinate (Solu-Medrol -) 40 mg IVPB Q8H-IV FABIO Nystatin (Nystatin Oral Suspension -) 500,000 units PO Q6HPO [facility] Last Admin: 07/01/16 12:08 Dose: 500,000 units Oseltamivir Phosphate (Tamiflu -) 75 mg PO BID [facility] Last Admin: 07/01/16 09:59 Dose: 75 mg Ranolazine (Ranexa -) 1,000 mg PO BID [facility] Last Admin: 07/01/16 09:55 Dose: 1,000 mg Rosuvastatin Calcium (Crestor -) 40 mg PO HS [facility] Last Admin: 06/30/16 21:34 Dose: 40 mg Fluticasone/Salmeterol (Advair 100mcg/50mcg -) 1 puff IH BID [facility] Last Admin: 07/01/16 09:58 Dose: 1 puff - Objective Vital Signs: Vital Signs Temperature 98.3 F 07/01/16 14:30 Pulse Rate 76 07/01/16 14:30 Respiratory Rate 22 07/01/16 14:30 Blood Pressure 110/67 07/01/16 14:30 O2 Sat by Pulse Oximetry (%) 93 L 07/01/16 09:00 Constitutional: Yes: No Distress, Obese Eyes: Yes: Conjunctiva Clear Cardiovascular: Yes: Regular Rate and Rhythm, S1, S2 Respiratory: Yes: Rhonchi, Wheezes Gastrointestinal: Yes: Normal Bowel Sounds, Soft. No: Tenderness Labs: CBC, BMP 06/27/16 06:30 07/01/16 07:40 Assessment/Plan Acute exacerbation COPD Possible Influenza Continue Tamiflu,complete 5d course Substitue po zithromax Steroids, bronchodilators
--- NOTE | 2016-07-01 17:27 | PN ---
Teaching Attending Note Name of Resident: Domonique Alexander ATTENDING PHYSICIAN STATEMENT I saw and evaluated the patient. I reviewed the resident's note and discussed the case with the resident. I agree with the resident's findings and plan as documented. SUBJECTIVE: no fever or chills, SOB is better . cough is better OBJECTIVE: NAD CV: RRR Lungs scattered wheezes, improved from yesterday ext: no edema ASSESSMENT AND PLAN: 60 y/o lady with h/o COPD . CAD , HTN , back pain , who presented with SOB and was found tohave acute COPD exacerbation 1- Acute COPD exacerbation : slightly improving . - peak flow daily - decrease steroids today - cont Nebs - cont Advair . - day of azithro for bronchitis , no evidence of PNA 2- Pyuria: with no sx of UTI. U cx Neg 3- Mild LONI : probably prerenal azotemia .improved with iVF x 24 hr Cont to hold HCTZ. cont to hold Diovan , if renal function remains stable , will resume , 4- HTN: cont BB , and increased gonsalez of norvasc and hold HCTZ/diovan 5- dispo : HLOC anticipate dc in 1-2 days
[2016-07-01] MEDS: ROSUVASTATIN CA 20 MG TABLET (FP) PO SCH (21:55)
[2016-07-02] MEDS: NYSTATIN 500,000 UNITS/5 ML SUSPENSION PO SCH ×3 (01:23→11:25)
[2016-07-02] MEDS: methylPREDNISolone NA SUCC 40 MG/1 ML VIAL IVPB SCH ×2 (01:29→09:18)
[2016-07-02] MEDS: ALBUTEROL SO4 2.5/IPRATROPIUM 0.5 INH SOL 3 ML VIAL.NEB. NEB SCH ×2 (06:10→10:30)
[2016-07-02] MEDS: INSULIN SLIDING SCALE (NOVOLOG) 1 VIAL SQ SCH ×2 (06:15→11:25)
[2016-07-02 09:02] LABS: CREATININE 1.2 mg/dL (0.55-1.02)
[2016-07-02] MEDS ORDERED: RANOLAZINE E.R. 500 MG TABLET (FP) ONE (09:10)
[2016-07-02] MEDS: amLODIPine BESYLATE 10 MG TABLET (FP) PO SCH (09:17)
[2016-07-02] MEDS: ASPIRIN 325 MG TABLET PO SCH (09:17)
[2016-07-02] MEDS: HEPARIN NA (PORCINE) 5,000 UNITS/ML 1ML VIAL SQ SCH (09:17)
[2016-07-02] MEDS: CARVEDILOL 25 MG TABLET (FP) PO SCH (09:17)
[2016-07-02] MEDS: FLUTICASONE/SALMETEROL 100 MCG/50 MCG DISKUS IH SCH (09:17)
[2016-07-02] MEDS: RANOLAZINE E.R. 1,000 MG TABLET (FP) PO SCH (09:18)
[2016-07-02] MEDS: OSELTAMIVIR PHOSPHATE 75 MG CAPSULE PO SCH (10:01)
[2016-07-02 10:48] VITALS: BP 141/82; TEMP 97.8
[2016-07-02] MEDS: EZETIMIBE 10 MG TABLET (FP) PO SCH (11:25)
--- NOTE | 2016-07-02 12:01 | PN ---
Progress Note (short form) - Note Progress Note: PULMONARY MILD SUBJECTIVE IMPROVEMENT VSS/AFEBRILE ANICTERIC B/L INS/EXP WHEEZE SCATTERED(IMPROVED) S1S2 BS+ SOFT NO EDEMA LABS/MEDS/NOTES/IMAGING REVIEWED PEAK FLOW 200-280 L/M A/P Acute COPD Exacerbation/bronchospastic component UTI CAD HTN Hyperlipidemia - medrol dose reduced - inhaled bronchodilators standing and PRN - O2 as needed - antibiotics stopped as per ID - outpt PFTs - DVT prophylaxis - daily peak flow Faith ORELLANA MD
[2016-07-02 12:13] VITALS: PULSE 75
--- NOTE | 2016-07-02 13:25 | DS ---
Physical Examination Vital Signs: Vital Signs Temperature 97.8 F 07/02/16 10:00 Pulse Rate 75 07/02/16 10:40 Respiratory Rate 18 07/02/16 10:00 Blood Pressure 141/82 07/02/16 10:00 O2 Sat by Pulse Oximetry (%) 95 07/02/16 10:40 Findings/Remarks: no fever ro chills, feels much better , able to ambulate . no productive cough Constitutional: Yes: Well Nourished, No Distress Eyes: Yes: Conjunctiva Clear HENT: Yes: Atraumatic, Normocephalic Neck: Yes: Supple, Trachea Midline Cardiovascular: Yes: Regular Rate and Rhythm Respiratory: Yes: Regular, Other (minimal wheezes b/l lungs . good air entry) Extremities: No: Calf Tenderness, Cool, Erythema Edema: No Labs: CBC, BMP 06/27/16 06:30 07/02/16 06:40 Discharge Summary Reason For Visit: SHORTNESS OF BREATH Current Active Problems COPD exacerbation (Acute) Fever (Acute) Shortness of breath (Acute) Hospital Course: Dc diagnoses: 1- Codp exacerbation 2- mild LONI 3- Thrush Hospital course : 60 y/o lady with h/o COPD . CAD , HTN , back pain , who presented with SOB after flu likel sx , and was found to have acute COPD exacerbation . On admission she had no evidecne of PNA on cxray , and had Neg rapid flu swap . she was started on breathing treatments and steroids. she did not improve initially and kept having severe wheezing , so she was trated empirically with azithromycine fro 5 days . She was also started on Tamiflu as the sensitivity of rapid flu test is 90 % ( full viral panel is still pending at time of dc ) . she has 3 more doses left of Tamiflu. she slowly improved , and her sx resolved. today she waslked with respiratory therapist and needed no oxygenon exertion or at rest. She was also monitored with peak flow . she is dc on a prednisone taper to follow with Dr. rivero. Spiriva was added to her home meds . She was found to have pyuria on UA , but had no sx of UTI , so whe was not treated for that She developed mild LONI ( Cr of 1.4 ). it was felt to be prerenal azotemia , which corrected with IVF x 24 hr . her diovan/HCTZ were held and to be resumed at pr she was treated for thrush in her mouth , for total of 10 days . no visible lesions in mouth at time of dc she was continued on the rest of her home meds dispo : HOme COndition improved f/u : PCPC and Pulm Time spent 40 min Condition: Improved - Instructions Diet, Activity, Other Instructions: please take prednisone , as per the prescribed taper. follow up with dr. Rivero in 1 week use your inhalers as prescribed. avoid sick contact continue your home meds call MD with any fever , chills, worsening SOB or any other complaints take TAmiflu for 3 more doses ( tonight , tomorrow AM and PM ) you do not need oxygen continue nystatin fro 7 more days . if thrush is still present at that time , call your MD Referrals: Benjamin Rivero MD [Staff Physician] - 1 Week Joshua Mccabe MD [Primary Care Provider] - 1 Week Disposition: HOME - Home Medications Comprehensive Discharge Medication List: Ambulatory Orders Carvedilol [Coreg] 25 mg PO DAILY 08/09/13 Ezetimibe [Zetia] 10 mg PO DAILY 08/09/13 Rosuvastatin Calcium [Crestor] 40 mg PO HS 08/09/13 Ranolazine [Ranexa -] 1,000 mg PO BID 08/26/13 Albuterol 0.083% Nebulizer Alessandra [Ventolin 0.083% Nebulizer Soln -] 1 neb NEB QID 08/13/15 Felodipine [Felodipine ER] 10 mg PO DAILY 08/13/15 Mometasone/Formoterol [Dulera 100 Mcg/5 Mcg Inhaler] 2 inh IH BID 08/13/15 Niacin [Niacin ER] 1,000 mg PO DAILY 08/13/15 Olmesartan/Hydrochlorothiazide [Benicar Hct 40-25 mg Tablet] 1 each PO DAILY 03/20 Aspirin [ASA -] 325 mg PO DAILY 02/09/16 Albuterol Sulfate Inhaler - [Ventolin HFA Inhaler -] 1 - 2 inh PO Q4H PRN Nystatin Oral Suspension - [Nystatin Oral Susp 055107 Units/5 ML -] 500,000 units PO Q6HPO #42 cup 07/02/16 Oseltamivir Phosphate [Tamiflu -] 75 mg PO BID #3 capsule 07/02/16 Prednisone 10 mg PO ASDIR #30 tablet 07/02/16 Tiotropium [place] [Spiriva] 1 inh PO DAILY #1 inhaler 07/02/16 This patient is new to me today: No Emergency Visit: Yes ED Registration Date: 06/26/16 Care time: The patient presented to the Emergency Department on the above date and was hospitalized for further evaluation of their emergent condition. Critical Care patient: No - Discharge Referral Referred to [facility] Med P.C.: No Physician Referral: Joshua Vuong MD ([facility])
[2016-07-02] MEDS ORDERED: methylPREDNISolone NA SUCC 40 MG/1 ML VIAL IVPB SCH (18:00)
== END 2016-07-02 16:11 | disposition home or self-care (01) | DRG 191 ==
LOC: JER 15:54 → JERBED 17:53 → J5S 06-27 16:20
PROVIDERS: ADMIT Internal Medicine; ATTEND Internal Medicine
DX: J44.1 Chronic obstructive pulmonary disease with (acute) exacerbation (principal); N17.9 Acute kidney failure, unspecified; N39.0 Urinary tract infection, site not specified; B37.89 Other sites of candidiasis; I25.10 Atherosclerotic heart disease of native coronary artery without angina pectoris; I10 Essential (primary) hypertension; M54.5 Low back pain; E87.6 Hypokalemia; E78.5 Hyperlipidemia, unspecified; R51 Headache; E83.42 Hypomagnesemia; R73.9 Hyperglycemia, unspecified; J11.1 Influenza due to unidentified influenza virus with other respiratory manifestations; Z87.891 Personal history of nicotine dependence; Z95.5 Presence of coronary angioplasty implant and graft
CPT/HCPCS: 36415; 71010-TC; 80048; 80053; 81003; 81015; 82550; 83605; 83735; 83880; 84100; 84484; 85025; 87040; 87070; 87086; 87254; 87420; 87430; 87804; 87899; 93005; 93010; 94150; 94640; 94761; 99285-25; G0008; J1644; Q2037

== ENCOUNTER 2018-07-11 12:10 | Emergency (ER) | payer OTHER ==
[2018-07-11 12:45] VITALS: BP 160/89; PULSE 82; TEMP 98.3; BMI 22.3
--- NOTE | 2018-07-11 13:29 | PDOC ---
History of Present Illness - General Chief Complaint: Pain, Acute Stated Complaint: RT LEG PAIN Time Seen by Provider: 07/11/18 13:28 - History of Present Illness Initial Comments: 07/11/18 13:30 62 year old woman with a past medical history of hypertension, CAD s/p stent 2004/2005, COPD (No home oxygen, no prior hospitalization), chronic back pain s/ p laminectomy who requires a cane to walk, who presents with 2 days of R calf pain that started at approximately 1800 yesterday and gradually worsening to a 8 /10. She describes the pain as soreness and tingling worse with standing and walking, improved with staying still. She has not taken any medications for the pain. She denies weakness or numbness. She had a small DVT in her leg in 2013 that did not require additional anticoagulants as she was already taking aspirin and plavix. She denies any recent travel or immobilization but reports that she smokes 5-6 cigarettes a day. She reports that she feel as if her R calf is swelling and becoming tense. She denies fever, chest pain or shortness of breath. Past History - Past Medical History Allergies/Adverse Reactions: Allergies Allergy/AdvReac Type Severity Reaction Status Date / Time isosorbide mononitrate AdvReac Severe headache Verified 07/11/18 12:42 [From Imdur] metal Allergy Intermediate Rash Uncoded 07/11/18 12:42 Home Medications: Ambulatory Orders Carvedilol [Coreg] 25 mg PO DAILY 08/09/13 Ezetimibe [Zetia] 10 mg PO DAILY 08/09/13 Rosuvastatin Calcium [Crestor] 40 mg PO HS 08/09/13 Ranolazine [Ranexa -] 1,000 mg PO BID 08/26/13 Albuterol 0.083% Nebulizer Alessandra [Ventolin 0.083% Nebulizer Soln -] 1 neb NEB QID 08/13/15 Felodipine [Felodipine ER] 10 mg PO DAILY 08/13/15 Mometasone/Formoterol [Dulera 100 Mcg/5 Mcg Inhaler] 2 inh IH BID 08/13/15 Niacin [Niacin ER] 1,000 mg PO DAILY 08/13/15 Olmesartan/Hydrochlorothiazide [Benicar Hct 40-25 mg Tablet] 1 each PO DAILY 03/20 Aspirin [ASA -] 325 mg PO DAILY 02/09/16 Albuterol Sulfate Inhaler - [Ventolin HFA Inhaler -] 1 - 2 inh PO Q4H PRN Nystatin Oral Suspension - [Nystatin Oral Susp 070730 Units/5 ML -] 500,000 units PO Q6HPO #42 cup 07/02/16 Tiotropium [place] [Spiriva] 1 inh PO DAILY #1 inhaler 07/02/16 Asthma: Yes Cardiac Disorders: Yes (3 stents) COPD: No Diabetes: No HTN: Yes Hypercholesterolemia: Yes Liver Disease: No Seizures: No - Surgical History Cardiac Surgery: Yes (3 stents) Neurologic Surgery: Yes (spine screws in back) Orthopedic Surgery: Yes (BACK SURGERY) - Immunization History Immunization Up to Date: Yes - Suicide/Smoking/Psychosocial Hx Smoking History: Current every day smoker Have you smoked in the past 12 months: Yes Number of Cigarettes Smoked Daily: 6 If you are a former smoker, when did you quit?: 6 mos ago Information on smoking cessation initiated: No 'Breaking Loose' booklet given: 04/24/15 Hx Alcohol Use: No Drug/Substance Use Hx: No Substance Use Type: Alcohol Hx Substance Use Treatment: No Review of Systems - Review of Systems Able to Perform ROS?: Yes Is the patient limited Setswana proficient: No Constitutional: No: Chills, Diaphoresis, Fever HEENTM: No: Blurred Vision, Tinnitus Respiratory: No: Cough, Shortness of Breath Cardiac (ROS): No: Chest Pain, Lightheadedness, Palpitations, Syncope ABD/GI: No: Constipated, Diarrhea, Nausea, Vomiting : No: Burning, Dysuria, Hematuria Musculoskeletal: Yes: Muscle Pain Integumentary: No: Erythema, Lesions, Lumps Neurological: No: Headache, Numbness, Tingling *Physical Exam - Vital Signs Last Vital Signs Temp Pulse Resp BP Pulse Ox 98.3 F 82 18 160/89 99 07/11/18 12:42 07/11/18 12:42 07/11/18 12:42 07/11/18 12:42 07/11/18 12:42 - Physical Exam Comments: 07/11/18 15:13 GENERAL: Awake, alert, and fully oriented, in no acute distress HEAD: No signs of trauma, normocephalic, atraumatic EYES: EOMI, sclera anicteric, conjunctiva clear ENT: oropharynx clear without exudates. Moist mucosa NECK: Normal ROM, supple LUNGS: No distress, speaks full sentences, clear to auscultation bilaterally HEART: Regular rate and rhythm, normal S1 and S2, no murmurs, rubs or gallops, peripheral pulses normal and equal bilaterally. ABDOMEN: Soft, nontender, normoactive bowel sounds. No guarding, no rebound. No masses EXTREMITIES : Normal inspection, Normal range of motion, no edema. No clubbing or cyanosis. negative straight leg, significant pain to calf palpation, faint but palpable pulses, warm extremities, soft compartment NEUROLOGICAL: Cranial nerves II through XII grossly intact. Normal speech, limping gait 2/2 pain with weight bearing, baseline gait with cane, no focal sensorimotor deficits SKIN: Warm, Dry, normal turgor, no rashes or lesions noted Moderate Sedation - Procedure Monitoring Vital Signs: Procedure Monitoring Vital Signs Temperature 98.3 F 07/11/18 12:42 Pulse Rate 82 07/11/18 12:42 Respiratory Rate 18 07/11/18 12:42 Blood Pressure 160/89 07/11/18 12:42 O2 Sat by Pulse Oximetry (%) 99 07/11/18 12:42 ED Treatment Course - LABORATORY CBC & Chemistry Diagram: 07/11/18 16:31 07/11/18 16:31 Medical Decision Making - Medical Decision Making 07/11/18 15:12 62 year old woman with a past medical history of hypertension, CAD s/p stent 2004/2005, COPD (No home oxygen, no prior hospitalization), chronic back pain s/ p laminectomy who requires a cane to walk, who presents with 2 days of R calf pain that started at approximately 1800 yesterday and gradually worsening to a 8 /10. She describes the pain as soreness and tingling worse with standing and walking, improved with staying still. She has not taken any medications for the pain. She denies weakness or numbness. She had a small DVT in her leg in 2013 that did not require additional anticoagulants as she was already taking aspirin and plavix. She denies any recent travel or immobilization but reports that she smokes 5-6 cigarettes a day. ED Course: Consider DVT vs PAD vs compartment syndrome vs achilles tendonitis r/o rhabdomyolysis cbc, cmp, ekg, pt/inr, ptt, cpk, duplex EKG: normal sinus rhythm HR 81, no interval abnormalities, narrow QRS, ST and T wave segments and morphology normal. 07/11/18 18:09 cbc: wnl cmp: minor elevation in BUN, CK, alk phos however patient has had previously elevated lab levels. US: without evidence of DVT Likely patient with achilles tendonitis vs musculoskeletal pain *DC/Admit/Observation/Transfer Diagnosis at time of Disposition: Calf pain - Discharge Dispostion Disposition: HOME Condition at time of disposition: Stable Decision to Admit order: No - Referrals Referrals: Yovani Andres MD [Staff Physician] - - Patient Instructions Additional Instructions: You were seen in the ED for complaints of R calf pain. In the ED you were evaluated with labwork and imaging. Your results were largely unremarkable. There does not appear to be an acute need for immediate hospitalization. You are advised to follow up with your Primary Care Physician within 1 week. You were given a referral to Orthopedics and are advised to follow up within 1 week. Take over the counter Tylenol and Motrin for pain relief. Rest, ice and elevate the leg, avoid overuse. Return to the ED immediately if you experience worsening calf pain, muscle weakness, numbness, tingling, swelling, fevers, limb being cool to the touch or chest pain and shortness of breath. - Post Discharge Activity
--- NOTE | 2018-07-11 15:04 | PDOC ---
Attending Attestation - HPI HPI: 07/11/18 15:08 The patient is a 62 year old female, with a significant past medical history of COPD, CAD, chronic back pain s/p laminectomy, ambulates with a cane, who presents to the emergency department with 2 days of right calf pain, exacerbated with walking and alleviated with staying still. She denies recent traumas, falls, surgeries. The patient denies chest pain, shortness of breath, headache and dizziness. The patient denies fever, chills, nausea, vomit, diarrhea and constipation. The patient denies dysuria, frequency, urgency and hematuria. - Physicial Exam PE: 07/11/18 16:38 Constitutional: Awake, alert, oriented. No acute distress. Head: Normocephalic. Atraumatic Eyes: PERRL. EOMI. Conjunctivae are not pale. ENT: Mucous membranes are moist and intact. Posterior pharynx without exudates or erythema. Uvula midline. Neck: Supple. Full ROM. No lymphadenopathy. Cardiovascular: Regular rate. Regular rhythm. S1, S2 regular. Distal pulses are 2+ and symmetric. Pulmonary/Chest: No evidence of respiratory distress. Clear to auscultation bilaterally No wheezing, rales or rhonchi. Abdominal: Soft and non-distended. There is no tenderness. No rebound, guarding or rigidity. No organomegaly. No palpable masses. Good bowel sounds. Back: No CVA tenderness. Musculoskeletal: No edema. No cyanosis. No clubbing. Full range of motion in all extremities. Nocalf tenderness. Radial/pedal pulses are intact and 2+ bilaterally Skin: Skin is warm and dry. No petechiae. No purpura. Neurological: Alert and oriented to person, place, and time. Cranial nerves II -XII are grossly intact. Normal speech. Strength is grossly symmetric. No sensory deficits. Ambulates with a cane. Psychiatric: Good eye contact. Normal interaction, affect and behavior. <Lelia Zepeda - Last Filed: 07/11/18 16:38> - Resident Resident Name: Jesica Burdick - ED Attending Attestation I have performed the following: I have examined & evaluated the patient, The case was reviewed & discussed with the resident, I agree w/resident's findings & plan, Exceptions are as noted - Medical Decision Making 07/11/18 15:02 I, Dr. Bettie Hernández DO, attest that this document has been prepared under my direction and personally reviewed by me in its entirety. I further attest, that it accurately reflects all work, treatment, procedures and medical decision -making performed by me. 07/11/18 16:14 a/p: 62yo female with R calf pain since last night -hx of lower leg dvt, states pain started while walking home last night -no swelling -calf ttp, achilles tenderness -will obtain las, ultrasound -pedal pulses intact -compartments soft -no erythema, no ecchymosis, no crepitus -will monitor and reassess 07/11/18 18:31 duplex ultrasound negative <Bettie Hernández - Last Filed: 07/11/18 18:32> Heart Score/ECG Review - ECG Intrepretation Comment:: 07/11/18 17:12 sinus at 81, nl axis, nl interval, t wave inversions v2-3, no acute st/t wave findings <Bettie Hernández - Last Filed: 07/11/18 18:32> Attestations - Attestations 07/11/18 15:09 Documentation prepared by Lelia Zepeda, acting as hospitalist medical director for Bettie Hernández DO <Lelia Zepeda - Last Filed: 07/11/18 16:38>
[2018-07-11 16:49] LABS: BASO % 1.3 % (0-2.0); EOS % 0.1 % (0-4.5); HEMATOCRIT 37.5 % (32.4-45.2); HEMOGLOBIN 13.3 GM/dL (10.7-15.3); LYMPH % 38.4 % (8-40); MCH 32.2 pg (25.7-33.7); MCHC 35.3 g/dl (32.0-36.0); MEAN CELL VOLUME 91.3 fl (80-96); MEAN PLT VOLUME 8.5 fl (7.5-11.1); MONO % 8.7 % (3.8-10.2); NEUT % 51.5 % (42.8-82.8); PLATELET COUNT 264 K/MM3 (134-434); RBC 4.11 M/mm3 (3.60-5.2)
[2018-07-11 17:07] LABS: INR 1.01 (0.83-1.09); PROTHROMBIN TIME (PATIENT) 11.9 SEC (9.7-13.0)
[2018-07-11 17:18] LABS: ALBUMIN 3.8 g/dl (3.4-5.0); ALK PHOS 121 U/L (45-117); ANION GAP 6 MMOL/L (8-16); BILIRUBIN,TOTAL 0.3 mg/dL (0.2-1); BLOOD UREA NITROGEN 31 mg/dL (7-18); CALCIUM 8.3 mg/dL (8.5-10.1); CHLORIDE 110 mmol/L (98-107); CO2 26 mmol/L (21-32); CREATININE 1.1 mg/dL (0.55-1.3); GLUCOSE,RANDOM 114 mg/dL (74-106); POTASSIUM 3.8 mmol/L (3.5-5.1); SGOT/AST 24 U/L (15-37); SGPT/ALT 23 U/L (13-61); SODIUM 142 mmol/L (136-145); TOT PROT 6.7 g/dl (6.4-8.2)
--- NOTE | 2018-07-12 16:44 | EKG ---
Test Reason : Blood Pressure : / mmHG Vent. Rate : 081 BPM Atrial Rate : 081 BPM P-R Int : 138 ms QRS Dur : 084 ms QT Int : 398 ms P-R-T Axes : 049 063 045 degrees QTc Int : 462 ms NORMAL SINUS RHYTHM NORMAL ECG WHEN COMPARED WITH ECG OF 29-JUN-2016 11:47, NO SIGNIFICANT CHANGE WAS FOUND Confirmed by JOHN GRAHAM MD ([id number]) on 07/12/2018 4:44:05 PM Referred By: Confirmed By:JOHN GRAHAM MD
== END 2018-07-11 19:02 | disposition home or self-care (01) ==
LOC: JER 12:10
DX: M79.18 Myalgia, other site (principal); M79.661 Pain in right lower leg; I25.10 Atherosclerotic heart disease of native coronary artery without angina pectoris; I10 Essential (primary) hypertension; Z95.5 Presence of coronary angioplasty implant and graft; J44.9 Chronic obstructive pulmonary disease, unspecified; M54.5 Low back pain; G89.29 Other chronic pain; R26.89 Other abnormalities of gait and mobility; Z99.89 Dependence on other enabling machines and devices; Z86.718 Personal history of other venous thrombosis and embolism; Z79.82 Long term (current) use of aspirin
CPT/HCPCS: 36415; 80053; 82550; 82553; 85025; 85610; 85730; 93005; 93010; 93971-TC; 99282-25

== ENCOUNTER 2019-06-21 08:45 | Day surgery (SDC) | payer OTHER ==
[2019-06-21 09:20] VITALS: TEMP 98.5; BMI 22.3
[2019-06-21] MEDS ORDERED: MIDAZOLAM HCL 2 MG/2 ML SINGLE DOSE VIAL ONE (10:27)
[2019-06-21] MEDS ORDERED: IOHEXOL 180 MG/1 ML ML IJ ONE ×2 (10:48)
[2019-06-21] MEDS ORDERED: LIDOCAINE HCL 1%, 10 MG/ML (50 mL VIAL) IJ ONE ×2 (10:48)
[2019-06-21] MEDS ORDERED: BUPIVACAINE HCL/PF 0.5% (5MG/ML) 10 ML VIAL IJ ONE (10:49)
[2019-06-21] MEDS ORDERED: BETAMET ACET/BETAMET NA PH 30 MG/5 ML VIAL IJ ONE ×2 (10:49)
[2019-06-21 14:38] VITALS: BP 170/95; PULSE 87
--- NOTE | 2019-06-25 23:29 | PROC ---
Procedure Note Procedure: Date of service: 06/21/2019 Preoperative Diagnosis: Low back pain and lumbar radiculopathy on right /Left Postoperative Diagnosis: Same Procedure Performed: Lumbar Epidural Steroid Injection (LESI) caudal approach with dye under Fluoroscopy Anesthesia: Local / MAC Anesthesiologist: Procedure: I discussed with the patient in detail about the risks, benefits, and alternatives to treatment not only limited to infection, headache, numbness , weakness, and injury to nerves, blood vessels and muscles. The patient understood, agreed and signed the written consent. The patient was placed in the prone position with the head, abdomen and legs supported with the pillows. The lumbosacral area was prepped and draped with Betadine times three in a sterile fashion. Lumbar vertebrae were identified under the C-arm. At Sacral hiatus , 3 ml of 1 % Lidocaine was infiltrated into the skin and subcutaneous tissue. A 3 inch, #20 gauge Tuohy needle was advanced to the epidural space with loss of resistance technique under fluoroscopic guidance.AP/ Lateral. Aspiration was negative for cerebrospinal fluid and blood. 5ml of Omnipaque ( radio-opaque dye) was injected to confirm the the flow of dye in epidural space and spread of dye. There was no CSF or vascular spread. The spread of dye was noted cranially and caudally on epidurogram. Aspiration was done again which was negative. A solution of 2.5 ml of Celestone, 2.5 ml of 0.25% Marcaine and 5 ml of preservative-free Normal Saline and a total of 10 ml was injected slowly. While Tuohy needle was withdrawn 2.0 ml of 1 % Lidocaine was infiltrated. Bleeding was checked. Betadine was wiped off. A sterile bandage was placed. The patient tolerated the procedure well. There were no immediate complications. The patient was transferred to the recovery room. The patient was observed for some time and discharged as per ASU criteria. The patient was told to apply ice at the injection site. Follow up appointment was given and also call my office at [phone]. If there is any problem, call my office or report to Emergency Room. Note : Initially Transforaminal approached was tried but failed. Parmjit Lloyd M.D. CPT : 14390.
== END 2019-06-21 13:00 | disposition home or self-care (01) ==
LOC: JASU-SURG 08:45
PROVIDERS: ATTEND Physical Medicine & Rehabilitation
PROC: 3E0R33Z Introduction of Anti-inflammatory into Spinal Canal, Percutaneous Approach (ICD-10-PCS; 2019-06-21)
PROC: B01BYZZ Fluoroscopy of Spinal Cord using Other Contrast (ICD-10-PCS; 2019-06-21)
PROC: 3E0R3BZ Introduction of Anesthetic Agent into Spinal Canal, Percutaneous Approach (ICD-10-PCS; principal; 2019-06-21 09:30)
DX: M54.16 Radiculopathy, lumbar region (principal); M54.5 Low back pain

== ENCOUNTER 2021-05-03 08:54 | Day surgery (SDC) | payer OTHER ==
[2021-05-03 11:09] VITALS: BMI 22.3
[2021-05-03] MEDS ORDERED: ROPIVACAINE HCL/PF 100 MG/20 ML VIAL ONE (12:34)
[2021-05-03] MEDS ORDERED: MIDAZOLAM HCL 2 MG/2 ML SINGLE DOSE VIAL ONE (12:34)
[2021-05-03] MEDS ORDERED: EPINEPHrine/PF 1 MG/1 ML (1:1,000) AMPULE ONE (12:53)
[2021-05-03] MEDS ORDERED: BUPIVACAINE HCL/PF 2.5 MG/ML - 30 ML VIAL IJ ONE (12:53)
[2021-05-03] MEDS ORDERED: DEXAMETHASONE SOD PHOSPHATE 4 MG/1 ML VIAL ONE (12:54)
[2021-05-03] MEDS ORDERED: KETOROLAC TROMETHAMINE 30 MG/1 ML VIAL ONE (12:54)
[2021-05-03] MEDS ORDERED: ONDANSETRON 4 MG/2 ML VIAL ONE (12:54)
[2021-05-03] MEDS ORDERED: LIDOCAINE HCL/PF 2% SDV 5ML VIAL ONE (12:55)
[2021-05-03] MEDS ORDERED: PROPOFOL 20 ML ONE (13:19)
[2021-05-03] MEDS ORDERED: ceFAZolin SODIUM 1 GM VIAL ONE (13:24)
[2021-05-03] MEDS ORDERED: ONDANSETRON 4 MG/2 ML VIAL IVPUSH PRN (15:34)
[2021-05-03] MEDS ORDERED: oxyCODONE HCL 5 MG TABLET PO PRN ×2 (15:34)
[2021-05-03 17:09] VITALS: BP 95/60; PULSE 68
[2021-05-03 18:09] VITALS: TEMP 97.9
== END 2021-05-03 17:45 | disposition home or self-care (01) ==
LOC: FASU 08:54
PROVIDERS: ATTEND Orthopaedic Surgery
PROC: 0RNJ4ZZ Release Right Shoulder Joint, Percutaneous Endoscopic Approach (ICD-10-PCS; 2021-05-03)
PROC: 0LS30ZZ Reposition Right Upper Arm Tendon, Open Approach (ICD-10-PCS; 2021-05-03)
PROC: 0PB94ZZ Excision of Right Clavicle, Percutaneous Endoscopic Approach (ICD-10-PCS; principal; 2021-05-03 13:45)
PROC: 0RBJ4ZZ Excision of Right Shoulder Joint, Percutaneous Endoscopic Approach (ICD-10-PCS; 2021-05-03 13:45)
DX: M75.111 Incomplete rotator cuff tear or rupture of right shoulder, not specified as traumatic (principal); S42.254K Nondisplaced fracture of greater tuberosity of right humerus, subsequent encounter for fracture with nonunion; S43.431A Superior glenoid labrum lesion of right shoulder, initial encounter; M75.21 Bicipital tendinitis, right shoulder; M75.01 Adhesive capsulitis of right shoulder; M19.011 Primary osteoarthritis, right shoulder; X58.XXXA Exposure to other specified factors, initial encounter; X58.XXXD Exposure to other specified factors, subsequent encounter; Y93.9 Activity, unspecified; Y92.9 Unspecified place or not applicable
CPT/HCPCS: 88304-TC; 94760

== ENCOUNTER 2024-04-29 06:05 | Day surgery (SDC) | payer OTHER ==
[2024-04-23 12:48] VITALS: BMI 26.2
[2024-04-29] MEDS ORDERED: TRANEXAMIC ACID 1000 MG/10 ML VIAL ONE ×3 (07:19→09:53)
[2024-04-29] MEDS ORDERED: PROPOFOL 20 ML ONE (07:19)
[2024-04-29] MEDS ORDERED: VANCOMYCIN 1,000 MG VIAL (RESTRICTED TO ID ONLY) ONE ×2 (07:19→08:04)
[2024-04-29] MEDS ORDERED: MIDAZOLAM HCL 2 MG/2 ML SINGLE DOSE VIAL ONE (07:19)
[2024-04-29] MEDS ORDERED: SUCCINYLCHOLINE CHLORIDE 200 MG/10 ML SYRINGE ONE (07:19)
[2024-04-29] MEDS ORDERED: BUPIVACAINE LIPOSOME/PF (EXPAREL) 266 MG/20 ML VIAL ONE (07:30)
[2024-04-29] MEDS ORDERED: BUPIVACAINE HCL/PF 0.5% (5MG/ML) 10 ML VIAL ONE (07:30)
[2024-04-29] MEDS ORDERED: LIDOCAINE HCL/PF 2% SDV 5ML VIAL ONE ×2 (07:48→10:11)
[2024-04-29] MEDS ORDERED: ceFAZolin SODIUM 1 GM VIAL ONE (08:04)
[2024-04-29] MEDS ORDERED: ROCURONIUM BROMIDE 50 MG/5 ML SYRINGE ONE (08:08)
[2024-04-29] MEDS ORDERED: DEXAMETHASONE SOD PHOSPHATE 4 MG/1 ML VIAL ONE (08:22)
[2024-04-29] MEDS ORDERED: ONDANSETRON 4 MG/2 ML VIAL ONE ×2 (08:22→10:11)
[2024-04-29] MEDS ORDERED: ALBUTEROL SO4 0.083% IH SOL 2.5 MG/3 ML VIAL.NEB. NEB ONE (10:57)
[2024-04-29] MEDS ORDERED: MAG HYDROX/AL HYDROX/SIMETH 30 ML UNIT-DOSE CUP PO PRN (10:58)
[2024-04-29] MEDS ORDERED: NITROGLYCERIN SUBLINGUAL 1/150 0.4 MG TAB SL PRN (11:00)
[2024-04-29] MEDS ORDERED: ALBUTEROL SULFATE 0.021% (0.63 MG/3 ML) VIAL.NEB NEB ONE (11:09)
[2024-04-29] MEDS ORDERED: PROMETHAZINE HCL 25 MG/1 ML VIAL IVPB PRN (11:09)
[2024-04-29] MEDS ORDERED: ONDANSETRON 4 MG/2 ML VIAL IVPUSH PRN (11:09)
[2024-04-29] MEDS ORDERED: oxyCODONE HCL 5 MG TABLET PO PRN ×2 (11:09)
[2024-04-29] MEDS ORDERED: LACTATED RINGERS SOLUTION 1,000 ML IV SCH (11:15)
[2024-04-29] MEDS: ACETAMINOPHEN 1000 MG/100 ML BAG IVPB ONE (12:00)
[2024-04-29] MEDS ORDERED: CARVEDILOL 12.5 MG TABLET (FP) PO SCH (14:00)
[2024-04-29] MEDS: ALBUTEROL SO4 0.083% IH SOL 2.5 MG/3 ML VIAL.NEB. NEB ONE (14:08)
[2024-04-29] MEDS: LACTATED RINGERS SOLUTION 1,000 ML IV SCH (14:09)
[2024-04-29] MEDS: CEFAZOLIN 2 GM/D5W 2 GRAM/50 ML ML IVPB SCH (17:00)
[2024-04-29] MEDS: ACETAMINOPHEN 500 MG TABLET (FP) PO SCH (17:59)
[2024-04-29] MEDS: oxyCODONE HCL 5 MG TABLET PO PRN (19:40)
[2024-04-29] MEDS: RANOLAZINE E.R. 1,000 MG TABLET (FP) PO SCH (21:50)
[2024-04-29] MEDS: SENNOSIDES/DOCUSATE COMBO (SENNA PLUS) TABLET (UD) PO SCH (21:50)
[2024-04-29] MEDS: CARVEDILOL 12.5 MG TABLET (FP) PO SCH (21:51)
[2024-04-29] MEDS: ROSUVASTATIN CA 5 MG TABLET PO SCH (21:51)
[2024-04-29] MEDS: EZETIMIBE 10 MG TABLET (FP) PO SCH (21:51)
[2024-04-29] MEDS: amLODIPine BESYLATE 5 MG TABLET (FP) PO SCH (21:51)
[2024-04-29] MEDS: POTASSIUM CHLORIDE TABS 10 MEQ TABLET.ER (FP) PO SCH (21:51)
[2024-04-29] MEDS: GABAPENTIN 300 MG CAPSULE PO SCH (21:51)
[2024-04-29] MEDS: ANASTROZOLE 1 MG TABLET PO SCH (21:51)
[2024-04-29] MEDS: LOSARTAN POTASSIUM 50 MG TABLET PO SCH (21:51)
[2024-04-29] MEDS: CALCIUM 500MG/VIT-D 200 UNITS COMBO TABLET (FP) PO SCH (21:51)
[2024-04-29] MEDS: oxyCODONE HCL 10 MG SUSTAINED ACTING TABLET PO SCH (21:52)
[2024-04-29] MEDS: VANCOMYCIN/WATER FOR INJ (PEG) 1 GM/200 ML BAG IVPB ONE (21:53)
[2024-04-29] MEDS ORDERED: PATIENT'S OWN MEDICATION (NON-FORMULARY) (Olmesartan Medoxomil 20 MG Tablet) PO SCH (22:00)
[2024-04-29] MEDS ORDERED: CALCIUM CARB PO SCH (22:00)
[2024-04-29] MEDS ORDERED: [UNRECOGNIZED DRUG - OTHER] PO SCH (22:00)
[2024-04-29] MEDS ORDERED: PATIENT'S OWN MEDICATION (NON-FORMULARY) (Multivitamin/Iron/Folic Acid [Centrum Adults Tab PO SCH (22:00)
[2024-04-29] MEDS ORDERED: VIT K1 PO SCH (22:00)
[2024-04-29] MEDS ORDERED: VITAMIN D3 PO SCH (22:00)
[2024-04-30 07:59] LABS: HEMATOCRIT 26.6 % (32.4-45.2); HEMOGLOBIN 8.6 G/dL (10.7-15.3); MCH 28.7 pg (25.7-33.7); MCHC 32.4 g/dl (32.0-36.0); MEAN CELL VOLUME 88.5 fl (80-96); RDW 17.2 % (11.6-15.6); WHITE BLOOD COUNT 9.3 10^3/uL (4.0-10.8)
[2024-04-30 08:18] LABS: CALCIUM 8.2 mg/dl (8.5-10.1); CREATININE 2.6 mg/dl (0.6-1.3); POTASSIUM 5.3 mmol/L (3.5-5.1)
[2024-04-30] MEDS: ONDANSETRON 4 MG/2 ML VIAL IVPUSH PRN (09:57)
[2024-04-30] MEDS: SODIUM CHLORIDE 1,000 ML IV SCH ×2 (09:58→18:24)
[2024-04-30] MEDS: PANTOPRAZOLE 40 MG TABLET PO SCH (11:39)
[2024-04-30] MEDS: ASPIRIN COATED 81 MG TABLET.EC PO SCH (11:39)
[2024-04-30] MEDS: MULTIVITAMINS (DAILY MVI) TABLET (FP) PO SCH (11:39)
[2024-04-30] MEDS ORDERED: ALBUTEROL SO4 2.5/IPRATROPIUM 0.5 INH SOL 3 ML VIAL.NEB. NEB PRN (14:54)
[2024-04-30] MEDS: ALBUTEROL SO4 2.5/IPRATROPIUM 0.5 INH SOL 3 ML VIAL.NEB. NEB PRN (16:22)
[2024-04-30 17:22] LABS: CREATININE 2.2 mg/dl (0.6-1.3); POTASSIUM 4.2 mmol/L (3.5-5.1)
[2024-04-30 17:42] LABS: CALCIUM 6.8 mg/dl (8.5-10.1)
[2024-04-30 22:13] VITALS: RESP 18
[2024-05-01 08:38] LABS: ALBUMIN 3.5 g/dl (3.4-5.0); BILIRUBIN,TOTAL 0.4 mg/dl (0.2-1); CREATININE 2.5 mg/dl (0.6-1.3); POTASSIUM 4.6 mmol/L (3.5-5.1); TOT PROT 5.6 g/dl (6.4-8.2)
[2024-05-01 09:07] LABS: BASO % 0.5 % (0-2.0); EOS % 0.8 % (0-4.5); HEMATOCRIT 26.9 % (32.4-45.2); HEMOGLOBIN 8.7 GM/dL (10.7-15.3); LYMPH % 28.6 % (8-40); MCH 28.8 pg (25.7-33.7); MCHC 32.2 g/dl (32.0-36.0); MEAN CELL VOLUME 89.2 fl (80-96); MEAN PLT VOLUME 8.4 fl (7.5-11.1); MONO % 11.6 % (3.8-10.2); NEUT % 58.5 % (42.8-82.8); PLATELET COUNT 294 10^3/uL (134-434); RBC 3.01 M/mm3 (3.60-5.2); RDW 18.9 % (11.6-15.6); WHITE BLOOD COUNT 7.7 K/mm3 (4.0-10.0)
[2024-05-01 09:47] VITALS: BP 144/45; PULSE 96; TEMP 98.6
== END 2024-05-01 11:22 | disposition home or self-care (01) ==
LOC: SUATTDRO 06:05 → FASUSAT 06:05 → FM/S 13:25 → FASUSAT 05-01 11:22
PROVIDERS: ATTEND Internal Medicine
PROC: 0RRJ00Z Replacement of Right Shoulder Joint with Reverse Ball and Socket Synthetic Substitute, Open Approach (ICD-10-PCS; principal; 2024-04-29 08:22)
PROC: 0JBD0ZZ Excision of Right Upper Arm Subcutaneous Tissue and Fascia, Open Approach (ICD-10-PCS; 2024-04-29 08:22)
DX: M19.011 Primary osteoarthritis, right shoulder (principal); M75.101 Unspecified rotator cuff tear or rupture of right shoulder, not specified as traumatic; M75.21 Bicipital tendinitis, right shoulder; M67.411 Ganglion, right shoulder
CPT/HCPCS: 23076; 23472; C1776; 36415; 73030-TC-RT-FY; 80048; 80053; 85025; 85027; 87070; 87075; 87205; 88305-TC; 88311-TC; 94640; 94760; 97116-GP; 97162-GP; C1713; J0131